=== PATIENT | female | born 1950 | race Caucasian/White ===

== ENCOUNTER → 2018-09-30 11:27 | Outpatient (CLI) | payer MEDICARE, SELFPAY ==
--- NOTE | 2018-09-30 | DI.MG.S_ITS ---
BILATERAL DIGITAL SCREENING MAMMOGRAM 3D/2D WITH CAD: 09/30/2018 CLINICAL: Routine screening. Comparison is made to exams dated: 09/21/2017 mammogram, 08/01/2016 mammogram, and 07/31/2015 mammogram - [facility]. There are scattered fibroglandular elements in both breasts. Current study was also evaluated with a Computer Aided Detection (CAD) system. There are benign post operative findings in the left breast. There is a circular mole marker on both breasts. There is a linear scar marker overlying the left breast. No significant masses, calcifications, or other findings are seen in either breast. There has been no significant interval change. IMPRESSION: There is no mammographic evidence of malignancy. A 1 year screening mammogram is recommended. This exam was interpreted at Station ID: [id number]. NOTE: For mammograms, a report in lay terms will be sent to the patient. Approximately 15% of breast malignancies will not be visualized mammographically. In the management of a palpable breast mass, a negative mammogram must not discourage biopsy of a clinically suspicious lesion. Electronically Signed By: Omi Valente M.D. ecl/:09/30/2018 17:32:11 letter sent: Normal Exam ACR BI-RADS Category 2: Benign Finding(s) 3342F
== END ==
PROVIDERS: Family Provider Family Medicine; PCP Family Medicine; Visit Provider Family Medicine
DX: Z12.31 Encounter for screening mammogram for malignant neoplasm of breast (principal)
CPT/HCPCS: 77063; 77067

== ENCOUNTER 2018-12-03 14:37 | Day surgery (SDC) | payer MEDICARE, SELFPAY ==
[2018-12-03] VITALS (10 sets, daily range): BP systolic 84–134; BP diastolic 47–81; PULSE 55–68; RESP 12–17; TEMP 36.3–36.7; O2SAT 92–98; BMI 28.0
--- NOTE | 2018-12-03 | PATH_ITS ---
[facility] Accession Number: [id number] . 01 Material submitted: . colon - SIGMOID POLYP 2-4 MM . 02 Diagnosis: Sigmoid Colon, 2-4 mm, Polypectomy: Hyperplastic polyp. [facility] [place]/12/06/2018 . 02 Electronically signed: . Darien Mcknight MD, PhD, Pathologist NPI- [id number] . 01 Gross description: . SIGMOID POLYP 2-4 MM: Received in formalin is 1 fragment(s) of chacko, soft tissue measuring 0.5 x 0.4 x 0.3 cm submitted entirely in 1 cassette(s) /CKI /CKI . 02 Pathologist provided ICD-10: K63.5 . 02 CPT . 851268 Performed at: 01 [facility] [address] [place] [address], [place], [place] [id number] MD Jonathan Holguin MD Phone: [phone] Performed at: 02 [facility] [address] [place], [place] [id number] MD Nicole Pierre MD Phone: [phone]
[2018-12-03] MEDS: LACTATED RINGERS 1,000 ML 200 ML IV (14:55)
[2018-12-03] MEDS: HYOSCYAMINE 0.125 MG TABLET PO (14:58)
[2018-12-03] MEDS: MIDAZOLAM 5 MG/5 ML VIAL IV (16:05)
[2018-12-03] MEDS: fentaNYL 250 MCG/5 ML INJ IV (16:06)
--- NOTE | 2018-12-03 16:25 | P.OP.ENDO_ITS ---
Operative Date/Time/Diagnoses Date of procedure: 12/03/18 Time of procedure: 16:19 Pre-op diagnosis: 1. Screening for colon cancer 2. History of colon polyps Post-op diagnosis: other (1. Screening for colon cancer, 2. History of colon polyps, 3. Sigmoid polyp x1) Procedure & Clinicians Study performed: Colonoscopy Same procedure as scheduled: Yes Indications: 1. Screening for colon cancer. 2. History of colon polyps Surgeon: Marielena Rust Procedure Notes Procedure in detail: ENDOSCOPIST: Marielena Rust MD PROCEDURE: Colonoscopy with cold biopsy INDICATIONS: 1. Screening for colon cancer 2. History of colon polyps MEDICATION: Levsin 0.125 mg sublingual, incremental doses of Versed and fentanyl until appropriate level sedation achieved. ASA CLASS: 2 CECAL WITHDRAWAL TIME: 8 minutes COMPLICATIONS: None. EXTENT OF PROCEDURE: Cecum. QUALITY OF PREP: Good with portions of liquid stool. PROCEDURE: Prior to insertion of the colonoscope, a digital rectal examination was accomplished with circumferential palpation of the distal rectal mucosa without significant findings being noted. The high-definition pediatric colonoscope was passed into the rectum in the usual fashion and advanced over to the cecum wit hout difficulty. The ileocecal valve, appendiceal stoma, and medial wall all could be inspected and no abnormalities were seen. ASCENDING COLON: As the colonoscope was withdrawn, care was taken to expose and inspect the haustral folds and no abnormalities were seen. HEPATIC FLEXURE: Normal no polyps, diverticula or other abnormalities. TRANSVERSE COLON: Normal no polyps, diverticula or other abnormalities. DESCENDING COLON: Minor diverticulosis, otherwise normal, no polyps, or other abnormalities. SIGMOID COLON: Minor diverticulosis, one small 2 mm polyp, removed with cold biopsy forceps, otherwise no other abnormalities. RECTUM: Normal. J maneuver was produced. There was no significant perianal disease. The J maneuver was broken. The remainder of the rectum was inspected and there was no external hemorrhoid disease. The scope was withdrawn. IMPRESSION: 1. Sigmoid polyp x1, in 2-4 mm, removed with cold biopsy forceps 2. Diverticulosis, left-sided PLAN: 1. Follow up in clinic status with the results. The possibility of a missed lesion including a malignancy has been discussed with the patient previously. Potential alarm symptoms have been discussed and should be reported immediately. Scope withdrawal time: 8 minutes Sedation minutes: 12 Findings: polyp Specimen(s): other Complications: none Recommendations: Will call with biopsy results Follow up: weeks (2) Disposition: PACU
--- NOTE | 2018-12-03 16:47 | SUR.PHASEI ---
1645 aroused spontaneously, denies feeling light-headed. HOB elevated, fluids given. Drowsy, oriented, resp unlabored.
--- NOTE | 2018-12-03 16:51 | SUR.PHASEI ---
Awake, drowsy, oriented, states that she feels good. Will prepare to transfer.
--- NOTE | 2018-12-03 17:48 | SUR.PHASEII ---
1705 Stable, anxious to go home, waiting for DC order; MD in procedure. Declines more fluids, denies pain, nausea, light-headedness. IV dc'd, clothes given.
--- NOTE | 2018-12-03 17:55 | SUR.PHASEII ---
Edit to IV fluid not permitted, so additional fluid infusion documented.
== END 2018-12-03 17:44 | disposition home or self-care (01) ==
PROVIDERS: PCP Family Medicine; Visit Provider Student in an Organized Health Care Education/Training Program
PROC: 0DJD8ZZ Inspection of Lower Intestinal Tract, Via Natural or Artificial Opening Endoscopic (ICD-10-PCS; CPT 45378; principal; 2018-12-03 16:00)
DX: Z86.010 Personal history of colon polyps (principal); K57.30 Diverticulosis of large intestine without perforation or abscess without bleeding; D12.5 Benign neoplasm of sigmoid colon; I10 Essential (primary) hypertension; E03.9 Hypothyroidism, unspecified
CPT/HCPCS: 45380; 88305; J2250; J3010

== ENCOUNTER → 2019-11-29 12:11 | Outpatient (CLI) | payer MEDICARE, SELFPAY ==
--- NOTE | 2019-11-29 | DI.MG.S_ITS ---
BILATERAL DIGITAL SCREENING MAMMOGRAM 3D/2D WITH CAD: 11/29/2019 CLINICAL: Routine screening. Comparison is made to exams dated: 09/30/2018 mammogram, 09/21/2017 mammogram, 08/01/2016 mammogram, and 07/31/2015 mammogram - [facility]. There are scattered fibroglandular elements in both breasts. Current study was also evaluated with a Computer Aided Detection (CAD) system. There are benign post operative findings in the left breast. There is a mole marker on the left breast. No significant masses, calcifications, or other findings are seen in either breast. There has been no significant interval change. IMPRESSION: There is no mammographic evidence of malignancy. A 1 year screening mammogram is recommended. This exam was interpreted at Station ID: [id number]. NOTE: For mammograms, a report in lay terms will be sent to the patient. Approximately 15% of breast malignancies will not be visualized mammographically. In the management of a palpable breast mass, a negative mammogram must not discourage biopsy of a clinically suspicious lesion. Electronically Signed By: Pushpa isaac/latricia:11/29/2019 17:47:48 letter sent: Normal Exam ACR BI-RADS Category 2: Benign Finding(s) 3342F
== END ==
PROVIDERS: PCP Family Medicine; Referring Provider Family Medicine; Visit Provider Family Medicine
DX: Z12.31 Encounter for screening mammogram for malignant neoplasm of breast (principal); Z78.0 Asymptomatic menopausal state; E07.9 Disorder of thyroid, unspecified; R29.890 Loss of height; Z87.891 Personal history of nicotine dependence
CPT/HCPCS: 77063; 77067; 77080

== ENCOUNTER 2020-10-28 13:40 | Emergency (ER) | payer MEDICARE, SELFPAY ==
[2020-10-28 14:02] VITALS: BP 152/74; PULSE 64; RESP 18; TEMP 36.2; O2SAT 97; BMI 26.5
--- NOTE | 2020-10-28 14:07 | DI.RAD.S_ITS ---
PROCEDURE: XR RIBS RT MIN 3V W CXR 1V INDICATIONS: fall TECHNIQUE: 2 views of the right ribs were acquired, along with a single view chest. COMPARISON: None. FINDINGS: Surgical changes and devices: None. Bones and chest wall: No fractures or dislocations. No suspicious bony lesions. Overlying soft tissues appear unremarkable. Lungs and pleura: No pleural effusions or pneumothorax. Lungs appear clear. Mediastinum: Mediastinal contours appear normal. Heart size is normal. IMPRESSION: No evidence of displaced right rib fracture. No evidence acute pulmonary process. Dictated by: Mason Chang M.D. on 10/28/2020 at 13:39 Approved by: Mason Chang M.D. on 10/28/2020 at 13:41
--- NOTE | 2020-10-28 17:07 | ED.FALL ---
HPI - Fall General Chief Complaint: Fall Stated Complaint: RIB PAIN RT SIDE AFTER FALL ON Time Seen by Provider: 10/28/20 17:07 Source: patient Mode of arrival: Family Vehicle Limitations: no limitations History of Present Illness HPI Narrative: 70-year-old female comes emergency department after a fall on Thursday, 5 days prior. Patient states that she was in her bathroom putting some lotion on her lower extremity on a patch of psoriasis when she lost her balance and fell into the edge of the bathtub. She landed on her right posterior Thoracics and developed bruising over the next couple days. Initially she had minimal pain but has had increasing pain for several days she has been taking aspirin pain with intermittent improvement. Patient denies hitting her head, no neck or midline back pain. No numbness tingling or weakness. She denies any shortness of breath or difficulty with inhalation. She denies any nausea or vomiting. No other GI or urinary symptoms. Patient takes medication for thyroid and hypertension. She states she has prompted come today because her made her. Related Data Home Medications Medication Instructions Recorded Confirmed CHOLECALCIFEROL (VITAMIN D) 2,000 units PO QDAY #0 12/24/12 12/03/18 LEVOTHYROXINE SODIUM (LEVOTHROID) 0.075 mg PO QDAY #0 12/24/12 12/03/18 losartan-hydrochlorothiazide 1 tab PO QDAY #0 12/24/12 12/03/18 [Hyzaar] metoprolol tartrate 50 mg PO BID #0 12/24/12 12/03/18 [POLYSPORIN] 1 INTRANASAL QDAY #0 12/26/15 multivitamin [Multiple Vitamins] 2 tab PO QDAY #0 12/26/15 12/03/18 calcium carbonate [Tums Ultra] 400 mg PO PRN PRN 12/03/18 12/03/18 Previous Rx's Medication Instructions Recorded ondansetron HCl [Zofran] 4 mg PO Q6H PRN #10 tab 10/28/20 tramadol [Ultram] 50 mg PO Q6H PRN #10 tab 10/28/20 Allergies Allergy/AdvReac Type Severity Reaction Status Date / Time codeine [CODEINE] AdvReac Intermediate VOILENTLY Verified 10/28/20 14:01 NAUSEATED hydrocodone [HYDROCODONE] AdvReac Intermediate nausea/vomi Verified 10/28/20 14:01 ting Review of Systems Review of Systems ROS Unobtainable: All systems reviewed & are unremarkable except as noted in HPI and below Patient History Medical History Cataract (lens) fragments in eye following cataract surgery, right eye Detached retina, right Eczema History of colon polyps History of pneumonia Hyperlipidemia Psoriasis Skin cancer Surgical History History of colonoscopy S/P YAG capsulotomy, right Social History household members: spouse Smoking Status: Former smoker Smoking Status: Former smoker alcohol intake frequency: 0-2 drinks per day Alcohol type: beer Substance Use Type: does not use Exam Narrative Exam Narrative: GEN: Patient appears in mild distress. HEAD: No evidence of trauma, no raccoon/Todd sign. NECK: Nontender, painless range of motion, trachea midline Negative Nexus criteria, there is no mid line tenderness, distracting injury, altered mental status, neuro deficit, recent EtOH. EYES: PERRLA, EOMI ENT: External inspection normal, trachea is midline, Nares are clear, airway is normal and with normal occlusion. RESP: Chest is nontender with palpation and has symmetric movement, no ecchymosis, breath sounds are normal no crackles, wheezes or rales CVS: Heart sounds are normal, no murmur noted, No JVD. ABG/GI: Nontender, soft, normal bowel sounds, no distention, no organomegaly. NEURO: Oriented AOx3, neuro is grossly intact, sensation and motor is normal all 4 extremities moving, cranial nerves II through XII are intact, GCS is 15. Normal gait. PSYCH: Normal mood and affect SKIN: Intact, warm and dry, no crepitus and without decubitus. Patient does have ecchymosis of your right thoracic towards her axilla. No palpable hematoma. BACK: No CVA tenderness, no vertebral tenderness, no step-off's, no crepitus EXT: Atraumatic, hips are nontender, no pedal edema, normal color and temperature. Normal ROM. Initial Vital Signs Initial Vital Signs: Vital Signs Temperature 97.1 F L 10/28/20 14:02 Pulse Rate 64 10/28/20 14:02 Respiratory Rate 18 10/28/20 14:02 Blood Pressure 152/74 H 10/28/20 14:02 Pulse Oximetry 97 10/28/20 14:02 Scores GCS [facility] coma scale eye opening: Spontaneous Cristine coma scale verbal response: Orientated Cristine coma scale motor response: Obey commands [facility] coma scale total score: 15 Course Orders Ordered: ED Orders 10/28/20 14:07 XR ribs RT min 3V w CXR1V Stat Discontinued Medications Ondansetron HCl (Ondansetron 4 Mg Odt Prepack) 1 bottle MISC SEEINSTR ONE Stop: 10/28/20 17:44 Last Admin: 10/28/20 17:56 Dose: 1 bottle Documented by: [email or web address] Tramadol HCl (Tramadol 50 Mg Prepack) 1 bottle MISC SEEINSTR ONE Stop: 10/28/20 17:44 Last Admin: 10/28/20 17:56 Dose: 1 bottle Documented by: [email or web address] Vital Signs Vital signs: Vital Signs - 8 hr 10/28/20 14:02 10/28/20 17:39 10/28/20 17:40 Temperature 97.1 F L Pulse Rate 64 78 77 Respiratory Rate 18 Blood Pressure 152/74 H 155/78 H Pulse Oximetry 97 100 97 MDM - Fall Imaging Data Chest x-ray: Radiologist's Impression: [address] [id number] ReportSigned Patient: Sharon Mars CMR#: [id number]: [id number]:[id number]/Sex: 70 / FDate of Service: 10/28/20Loc: EDAccession Number: [id number] Procedure: XR ribs RT min 3V w CXR1V Ordering Provider: Keely Pompa D.O. PROCEDURE: XR RIBS RT MIN 3V W CXR 1V INDICATIONS: fall TECHNIQUE: 2 views of the right ribs were acquired, along with a single view chest. COMPARISON: None. FINDINGS: Surgical changes and devices: None. Bones and chest wall: No fractures or dislocations. No suspicious bony lesions. Overlying soft tissues appear unremarkable. Lungs and pleura: No pleural effusions or pneumothorax. Lungs appear clear. Mediastinum: Mediastinal contours appear normal. Heart size is normal. IMPRESSION: No evidence of displaced right rib fracture. No evidence acute pulmonary process. Dictated by: Mason Chang M.D. on 10/28/2020 at 13:39 Approved by: Mason Chang M.D. on 10/28/2020 at 13:41 MDM Narrative Medical decision making narrative: This is a 70-year-old female with obvious contusion on her posterior thoracic wall in the right. Patient has been taking aspirin which is likely making her contusions light worse. It has not been growing in size. She does not point tenderness but is does have discomfort. X-ray does not show any acute fracture visualized. Plan for short course of pain medication, patient has had nausea and vomiting with codeine and [place] so will try tramadol with Zofran 20 minutes prior. Patient has had minimal improvement with [id number] medications. Discharge Plan Departure Patient Disposition: Home Clinical Impression: Contusion of rib on right side, Superficial bruising of chest wall Instructions: DI for Rib Fracture Activity Restrictions/Additional Instructions: Follow up with your physician if your symptoms are not improving over the next 1-2 weeks. You should start to notice slow improvement in your symptoms. Your imaging does not show obvious break or fracture to the ribs but you could have very small fractures or you can have contusions of the bone. You may take Zofran 1 tablet every 6 hours as needed for nausea. I would recommend taking this 20 minutes prior to narcotic pain medication. You may take 2 tablets pain medication every 6 hours as needed. This medication can make you sleepy do not drive, perform hazardous activities or make any major decisions while taking it. This medication will make you constipated please take a stool softener once to twice daily until stools are soft and regular. Prescription to [facility] in [place] Please return for lightheadedness, passing out, new chest pain or changing or shortness of breath, persistent vomiting, rapidly worsening bruising or spreading bruising, warmth or erythema of the skin or other new or concerning symptoms. Prescriptions: New ondansetron HCl [Zofran] 4 mg tablet 4 mg PO Q6H PRN (Reason: nausea and vomiting) Qty: 10 RF: 0 tramadol [Ultram] 50 mg tablet 50 mg PO Q6H PRN (Reason: pain) Qty: 10 RF: 0 No Action LEVOTHYROXINE SODIUM (LEVOTHROID) 0.075 mg PO QDAY Qty: 0 RF: 0 metoprolol tartrate 50 MG tablet 50 mg PO BID Qty: 0 RF: 0 losartan-hydrochlorothiazide [Hyzaar] 50 MG/12.5 MG tablet 1 tab PO QDAY Qty: 0 RF: 0 CHOLECALCIFEROL (VITAMIN D) 2,000 units PO QDAY Qty: 0 RF: 0 multivitamin [Multiple Vitamins] 1 EACH tablet 2 tab PO QDAY Qty: 0 RF: 0 [POLYSPORIN] 1 Intranasal QDAY Qty: 0 RF: 0 calcium carbonate [Tums Ultra] 400 mg calcium (1,000 mg) Tablet,Chewable 400 mg PO PRN PRN (Reason: Heartburn) RF: 0 Referrals: Cyrus Emmanuel MD [Primary Care Provider] -
[2020-10-28 17:39] VITALS: PULSE 78; O2SAT 100
[2020-10-28 17:40] VITALS: BP 155/78; PULSE 77; O2SAT 97
[2020-10-28] MEDS: ONDANSETRON 4 MG ODT PREPACK 1 BOTTLE MISC (17:56)
[2020-10-28] MEDS: TRAMADOL 50 MG PREPACK 1 BOTTLE MISC (17:56)
== END 2020-10-28 18:15 | disposition home or self-care (01) ==
PROVIDERS: Emergency Provider Emergency Medicine; PCP Family Medicine
DX: S20.211A Contusion of right front wall of thorax, initial encounter (principal); W19.XXXA Unspecified fall, initial encounter
CPT/HCPCS: 71101; 99283

== ENCOUNTER 2020-11-04 10:32 | Inpatient (IN) | payer MEDICARE, SELFPAY ==
[2020-11-04] VITALS (16 sets, daily range): BP systolic 118–158; BP diastolic 58–81; PULSE 58–89; RESP 17–58; TEMP 36–36.8; O2SAT 96–99; BMI 27.4
--- NOTE | 2020-11-04 10:53 | DI.CT.S_ITS ---
PROCEDURE: CT HEAD/BRAIN WO CON INDICATIONS: dizzy/head injury TECHNIQUE: Noncontrast 4.5 mm thick angled axial sections acquired from the foramen magnum to the vertex, with coronal and sagittal reformats. For radiation dose reduction, the following was used: automated exposure control, adjustment of mA and/or kV according to patient size. COMPARISON: None. FINDINGS: Image quality: Excellent. CSF spaces: Basal cisterns are patent. No extra-axial fluid collections. The ventricles are symmetric in size and shape. Mild bilateral ventricular prominence. Brain: No intracranial bleeds or masses. There is cerebral volume loss for age, with resultant ventricular and sulcal prominence. There are periventricular and deep white matter chronic small vessel ischemic changes. There is intracranial internal carotid artery atherosclerosis. Skull and face: Calvarium and visualized facial bones appear intact, without suspicious lesions. Sinuses: Visualized sinuses and mastoids are clear. IMPRESSION: 1. Age-related volume loss with mild bilateral ventricular prominence. 2. No evidence acute stroke, hemorrhage, or mass. 3. No evidence of significant intracranial sequelae of acute trauma. Dictated by: Mason Chang M.D. on 11/04/2020 at 10:24 Approved by: Mason Chang M.D. on 11/04/2020 at 10:25
[2020-11-04 11:37] LABS: BUN Creatinine Ratio 21.7 (6-22); Blood Urea Nitrogen 10 mg/dL (7-17); Calcium 9.2 mg/dL (8.4-10.2); Carbon Dioxide 31 mmol/L (22-32); Estimated Glomerular Filt Rate > 60.0 mL/min (>60); Glucose 159 mg/dL (80-110); HEMOLYSIS < 15 (0-50)
[2020-11-04 11:44] LABS: Basophils Absolute Auto 200 /uL (0-100); Basophils Percent Auto 2.9 % (0-2); Eosinophils Absolute Auto 0 /uL (0-450); Eosinophils Percent Auto 0.4 % (2-4); Hematocrit 39.3 % (36-46); Hemoglobin 14.8 g/dL (12.0-16.0); Lymphocytes Absolute Auto 800 /uL (1100-4500); Lymphocytes Percent Auto 12.6 % (25-40); Mean Corpuscular HGB Conc 37.7 % (30-36); Mean Corpuscular Hemoglobin 33.1 PG (26-34); Mean Corpuscular Volume 87.7 fL (80-100); Monocytes Absolute Auto 700 /uL (0-900); Monocytes Percent Auto 10.7 % (3-14); Neutrophils Absolute Auto 4500 /uL (1500-7000); Neutrophils Percent Auto 73.4 % (50-75); Platelet Count 223 X10^3/uL (150-400); Red Blood Cell Count 4.48 X10^6/uL (4.0-5.2); Red Cell Distribution Width 12.6 % (11.6-14.8); White Blood Cell Count 6.2 X10^3/uL (4.5-11.0)
[2020-11-04 11:45] LABS: Add Manual Diff / Slide Review SLIDE REVIEW
[2020-11-04 12:01] LABS: Chloride 75 mmol/L (98-107); Potassium 2.2 mmol/L (3.4-5.1); Sodium 114 mmol/L (137-145)
[2020-11-04 12:35] LABS: RBC Morphology Normal Morphology
[2020-11-04 12:39] LABS: Magnesium 1.7 mg/dL (1.6-2.3)
[2020-11-04] MEDS: ONDANSETRON 4 MG/2 ML INJ IV (12:46)
[2020-11-04 13:28] LABS: COVID19 -Nasal RAPID Negative (Negative)
--- NOTE | 2020-11-04 13:29 | ED_ITS ---
HPI - Weakness General Chief complaint: Weakness Stated complaint: not felling well/ vomitting weak dizzy Time Seen by Provider: 11/04/20 12:52 Source: patient and family ( ) Mode of arrival: Wheelchair Limitations: no limitations History of Present Illness HPI Narrative: this is a pleasant 70-year-old female who comes to the emergency department for not feeling well. Feeling weak, dizzy and having multiple falls this week. Patient states she has had several episodes of emesis but they been intermittent. Patient denies any pain currently. She denies any headache, vision changes, no facial droop. No numbness, tingling or localized weakness or lateralizing weakness. Patient denies any abdominal pain, no chest pain or shortness of breath. She has not had any diarrhea, black or bloody stools. patient's did notice her urine seemed dark yesterday and today. Patient has not had any dysuria or urgency. Patient does take losartan / hydrochlorothiazide, levothyroxine metoprolol daily for medications. She does not have any known cardiac history. She did think that she had hit her head at some point. Related Data Home Medications Medication Instructions Recorded Confirmed CHOLECALCIFEROL (VITAMIN D) 2,000 units PO QDAY #0 12/24/12 11/04/20 LEVOTHYROXINE SODIUM (LEVOTHROID) 0.075 mg PO QDAY #0 12/24/12 11/04/20 metoprolol tartrate 50 mg PO BID #0 12/24/12 11/04/20 multivitamin [Multiple Vitamins] 2 tab PO QDAY #0 12/26/15 11/04/20 calcium carbonate [Tums Ultra] 400 mg PO PRN PRN 12/03/18 11/04/20 atorvastatin 10 mg PO BEDTIME 11/04/20 11/04/20 chlorhexidine gluconate 0.5 ea PO BEDTIME 11/04/20 11/04/20 fluoride (sodium) [PreviDent 5000 1 applic PO BID 11/04/20 11/04/20 Booster Plus] losartan-hydrochlorothiazide 1 tab PO DAILY 11/04/20 11/04/20 tramadol 50 mg PO Q6H PRN 11/04/20 11/04/20 Previous Rx's Medication Instructions Recorded ondansetron HCl [Zofran] 4 mg PO Q6H PRN #10 tab 10/28/20 Allergies Allergy/AdvReac Type Severity Reaction Status Date / Time codeine [CODEINE] AdvReac Intermediate VOILENTLY Verified 10/28/20 14:01 NAUSEATED hydrocodone [HYDROCODONE] AdvReac Intermediate nausea/vomi Verified 10/28/20 14:01 ting Review of Systems Review of Systems ROS Unobtainable: All systems reviewed & are unremarkable except as noted in HPI and below Patient History Medical History Cataract (lens) fragments in eye following cataract surgery, right eye Detached retina, right Eczema History of colon polyps History of pneumonia Hyperlipidemia Psoriasis Skin cancer Surgical History History of colonoscopy S/P YAG capsulotomy, right Social History household members: spouse Smoking Status: Former smoker Smoking Status: Former smoker alcohol intake frequency: 0-2 drinks per day Alcohol type: beer Substance Use Type: does not use Exam Narrative Exam Narrative: GEN: well nourished, well appearing female, alert and oriented in room, patient appears to be in mild distress. HEENT: Atraumatic, pupils are equal round reactive to light, extraocular movements are intact, nares are clear, TMs are clear with no fluid, there is no conjunctival pallor. Throat is clear without any exudates, erythema, tonsillar enlargement or uvular deviation, no facial droop HEART: Regular rate and rhythm without murmur, clicks, rubs. Pulses are equal in upper and lower extremities LUNGS:Lungs clear to auscultation, no wheezes, rales, crackles, chest moves symmetrically ABD:bowel sounds normal, soft, non-tender, no guarding, rebound, rigidity, no masses noted, no hepatosplenomegaly :No CVA tenderness MSCL: Non-tender, no muscle atrophy, range of motion in upper and lower extremities NEURO:CN 2-12 intact, sensation normal SKIN: no obvious rash or skin changes noted. Initial Vital Signs Initial Vital Signs: Vital Signs Temperature 96.8 F L 11/04/20 10:44 Pulse Rate 58 L 11/04/20 10:44 Respiratory Rate 58 H 11/04/20 10:44 Blood Pressure 118/58 L 11/04/20 10:44 Pulse Oximetry 97 11/04/20 10:44 Course Orders Ordered: ED Orders 11/04/20 11:20 BMP [Basic Metabolic Panel] Stat CBC Auto Diff [Complete Blood Count AUTO DIFF] Stat Magnesium Stat 11/04/20 12:22 EKG-12 Lead Stat 11/04/20 13:00 COVID19 - ADMIT (RHINOLOGIST swab/PCR) Stat COVID19 -Nasal swab/Pre-Proc Stat Acetaminophen (Acetaminophen 325 Mg Tablet) 650 mg PO Q6HR PRN PRN Reason: Fever/Mild Pain (1-3) Last Admin: 11/04/20 19:12 Dose: 650 mg Documented by: NEHEMIAH Atorvastatin Calcium (Atorvastatin 20 Mg Tablet) 10 mg PO BEDTIME [facility] Calcium Carbonate (Calcium Carbonate 500 Mg Tab) 1,000 mg PO Q4HR PRN PRN Reason: Dyspepsia Last Admin: 11/04/20 19:12 Dose: 1,000 mg Documented by: NEHEMIAH Chlorhexidine Gluconate (Chlorhexidine Gluconate 473 Ml Mouthwash) 15 ml PO BEDTIME [facility] Enoxaparin Sodium (Enoxaparin 40 Mg/0.4 Ml Syringe) 40 mg SUBCUT DAILY [facility] POTASSIUM CHLORIDE IN WATER (Potassium Cl 10 Meq/100 Ml [place]) 10 meq in 100 mls @ 100 mls/hr IV Q1H [facility] Stop: 11/04/20 22:29 Ibuprofen (Ibuprofen 600 Mg Tablet) 600 mg PO Q6HR PRN PRN Reason: Fever/Mild Pain (1-3) Last Admin: 11/04/20 19:11 Dose: 600 mg Documented by: NEHEMIAH Levothyroxine Sodium (Levothyroxine 75 Mcg Tablet) 75 mcg PO DAILY@1800 MARYJANE Last Admin: 11/04/20 19:16 Dose: 75 mcg Documented by: NEHEMIAH Losartan Potassium (Losartan 50 Mg Tablet) 100 mg PO DAILY [facility] Metoprolol Tartrate (Metoprolol Ir 50 Mg Tablet) 50 mg PO BID [facility] Multivitamins (Multivitamin 1 Tablet) 2 tab PO DAILY [facility] Naloxone HCl (Naloxone 0.4 Mg/Ml Vial) 0.4 mg IV Q30MIN PRN PRN Reason: Opiate Reversal Non-Formulary Medication (Fluoride (Sodium) [Prevident 5000 Booster Plus]) 1 applictn PO BID [facility] Ondansetron HCl (Ondansetron 4 Mg/2 Ml Inj) 4 mg IV Q8HR PRN PRN Reason: Nausea And Vomiting Ondansetron HCl (Ondansetron 4 Mg Odt) 4 mg PO Q6H PRN PRN Reason: Nausea And Vomiting Tramadol HCl (Tramadol 50 Mg Tablet) 50 mg PO Q6H PRN PRN Reason: Pain (Scale Score 4-6) Vitamin D (Cholecalciferol (Vitamin D3) 1,000 Unit Tablet) 2,000 unit PO 1800 MARYJANE Last Admin: 11/04/20 19:11 Dose: 2,000 unit Documented by: NEHEMIAH Discontinued Medications Sodium Chloride (Normal Saline 0.9%) 1,000 mls @ 1,000 mls/hr IV BOLUS ONE Stop: 11/04/20 14:28 Last Infusion: 11/04/20 15:56 Dose: 0 mls/hr Documented by: Admin: 11/04/20 13:55 Dose: 1,000 mls/hr Documented by: RUPERT POTASSIUM CHLORIDE IN WATER (Potassium Cl 10 Meq/100 Ml [place]) 10 meq in 100 mls @ 100 mls/hr IV Q1H MARYJANE Stop: 11/04/20 17:29 Last Infusion: 11/04/20 18:59 Dose: 100 mls/hr Documented by: Admin: 11/04/20 17:29 Dose: 100 mls/hr Documented by: Infusion: 11/04/20 17:29 Dose: 0 mls/hr Documented by: Infusion: 11/04/20 16:29 Dose: 0 mls/hr Documented by: Admin: 11/04/20 16:05 Dose: 100 mls/hr Documented by: Infusion: 11/04/20 16:05 Dose: 100 mls/hr Documented by: Admin: 11/04/20 15:07 Dose: 100 mls/hr Documented by: Infusion: 11/04/20 14:56 Dose: 100 mls/hr Documented by: Admin: 11/04/20 13:56 Dose: 100 mls/hr Documented by: RUPERT Ondansetron HCl (Ondansetron 4 Mg/2 Ml Inj) 4 mg IV NOW ONE Stop: 11/04/20 12:23 Last Admin: 11/04/20 12:46 Dose: 4 mg Documented by: RUPERT Potassium Chloride (Potassium Chloride 20 Meq/15 Ml Udc) 40 meq PO NOW ONE Stop: 11/04/20 13:30 Last Admin: 11/04/20 13:56 Dose: 40 meq Documented by: RUPERT Vital Signs Vital signs: Vital Signs - 8 hr 11/04/20 12:09 11/04/20 12:30 11/04/20 13:00 Pulse Rate 62 61 59 L Respiratory Rate 20 17 Blood Pressure 134/67 129/64 Pulse Oximetry 99 98 97 11/04/20 13:30 11/04/20 14:00 11/04/20 14:01 Pulse Rate 59 L 69 89 Respiratory Rate 17 20 23 Blood Pressure 123/61 145/75 H Pulse Oximetry 97 98 96 11/04/20 14:30 11/04/20 15:00 11/04/20 15:30 Pulse Rate 67 63 69 Respiratory Rate 20 21 20 Blood Pressure 137/64 158/69 H Pulse Oximetry 98 98 98 11/04/20 15:42 11/04/20 16:00 Pulse Rate 67 69 Respiratory Rate 24 24 Blood Pressure 158/69 H 138/81 Pulse Oximetry 97 98 MDM - Weakness Lab Data Attestation: I reviewed the patient's lab results. Result diagrams: 11/04/20 11:20 11/04/20 11:20 Labs: Lab Results 11/04/20 11/04/20 11/04/20 Range/Units 11:20 11:20 11:20 WBC 6.2 (4.5-11.0) X10^3/uL RBC 4.48 (4.0-5.2) X10^6/uL Hgb 14.8 (12.0-16.0) g/dL Hct 39.3 (36-46) % MCV 87.7 (80-100) fL MCH 33.1 (26-34) PG MCHC 37.7 H (30-36) % RDW 12.6 (11.6-14.8) % Plt Count 223 (150-400) X10^3/uL Neut % (Auto) 73.4 (50-75) % Lymph % (Auto) 12.6 L (25-40) % [place] % (Auto) 10.7 (3-14) % Eos % (Auto) 0.4 L (2-4) % Baso % (Auto) 2.9 H (0-2) % Neut # (Auto) 4500 (2430-9485) /uL Lymph # (Auto) 800 L (0221-0727) /uL [place] # (Auto) 700 (0-900) /uL Eos # (Auto) 0 (0-450) /uL Baso # (Auto) 200 H (0-100) /uL RBC Morphology Normal morphology Sodium 114 L* (137-145) mmol/L Potassium 2.2 L* (3.4-5.1) mmol/L Chloride 75 L* (98-107) mmol/L Carbon Dioxide 31 (22-32) mmol/L BUN 10 (7-17) mg/dL Creatinine 0.46 L (0.52-1.04) mg/dL Estimated GFR > 60.0 (>60) mL/min BUN/Creatinine Ratio 21.7 (6-22) Glucose 159 H (80-110) mg/dL Calcium 9.2 (8.4-10.2) mg/dL Magnesium 1.7 (1.6-2.3) mg/dL SARS-CoV-2 (PCR) (Negative) 11/04/20 11/04/20 Range/Units 13:00 13:00 WBC (4.5-11.0) X10^3/uL RBC (4.0-5.2) X10^6/uL Hgb (12.0-16.0) g/dL Hct (36-46) % MCV (80-100) fL MCH (26-34) PG MCHC (30-36) % RDW (11.6-14.8) % Plt Count (150-400) X10^3/uL Neut % (Auto) (50-75) % Lymph % (Auto) (25-40) % [place] % (Auto) (3-14) % Eos % (Auto) (2-4) % Baso % (Auto) (0-2) % Neut # (Auto) (4230-5517) /uL Lymph # (Auto) (0650-5207) /uL [place] # (Auto) (0-900) /uL Eos # (Auto) (0-450) /uL Baso # (Auto) (0-100) /uL RBC Morphology Sodium (137-145) mmol/L Potassium (3.4-5.1) mmol/L Chloride (98-107) mmol/L Carbon Dioxide (22-32) mmol/L BUN (7-17) mg/dL Creatinine (0.52-1.04) mg/dL Estimated GFR (>60) mL/min BUN/Creatinine Ratio (6-22) Glucose (80-110) mg/dL Calcium (8.4-10.2) mg/dL Magnesium (1.6-2.3) mg/dL SARS-CoV-2 (PCR) Negative Negative (Negative) Imaging Data CT scan - head: Radiologist Impression: [address] [id number] Scan ReportSigned Patient: Sharon Mars CMR#: [id number]: 8Acct:[id number]/Sex: 70 / FDate of Service: 11/04/20Loc: EDAccession Number: [id number] Procedure: CT head/brain wo con Ordering Provider: Keely Pompa D.O. PROCEDURE: CT HEAD/BRAIN WO CON INDICATIONS: dizzy/head injury TECHNIQUE: Noncontrast 4.5 mm thick angled axial sections acquired from the foramen magnum to the vertex, with coronal and sagittal reformats. For radiation dose reduction, the following was used: automated exposure control, adjustment of mA and/or kV according to patient size. COMPARISON: None. FINDINGS: Image quality: Excellent. CSF spaces: Basal cisterns are patent. No extra-axial fluid collections. The ventricles are symmetric in size and shape. Mild bilateral ventricular prominence. Brain: No intracranial bleeds or masses. There is cerebral volume loss for age, with resultant ventricular and sulcal prominence. There are periventricular and deep white matter chronic small vessel ischemic changes. There is intracranial internal carotid artery atherosclerosis. Skull and face: Calvarium and visualized facial bones appear intact, without suspicious lesions. Sinuses: Visualized sinuses and mastoids are clear. IMPRESSION: 1. Age-related volume loss with mild bilateral ventricular prominence. 2. No evidence acute stroke, hemorrhage, or mass. 3. No evidence of significant intracranial sequelae of acute trauma. Dictated by: Mason Chang M.D. on 11/04/2020 at 10:24 Approved by: Mason Chang M.D. on 11/04/2020 at 10:25 ECG Data Attestation: I personally reviewed and interpreted this ECG as follows: Interpretation: Sinus bradycardia rate of 55 IA 144, QRS of 98 QTC of 420. No acute ST elevation. Patient has some nonspecific depression. This is noted on an prior EKG from 12/24/2015 and appears similar but on prior EKG from 02/04/2016 is not appreciated. MDM Narrative Medical decision making narrative: This is a 70-year-old female comes in with recurrent falls, weakness and symptoms consistent with hyponatremia, patient has had some nausea and vomiting and this is also consistent with her hypokalemia. She does take losartan / hydrochlorothiazide this may be contributing factor. I suspect this is been a slower declined as her mentation is quite clear in the department. Head CT was negative for bleed. She does not have any obvious stroke symptoms here today. Patient EKG shows some nonspecific change but she does not have any cardiac symptoms today. Discussed with Dr. Rust who kindly accepts for inpatient admission Discharge Plan Departure Patient Disposition: Admitted As Inpatient Clinical Impression: Hyponatremia, Hypokalemia Admit Date/Time: 11/04/20 16:27 Admit Provider: Alli Pelletier
[2020-11-04] MEDS: SODIUM CHLORIDE 0.9% 1,000 ML 1000 ML IV (13:55)
[2020-11-04] MEDS: POTASSIUM CHLORIDE IN WATER 10 MEQ/100 ML PIGGYBACK 100 MEQ IV ×4 (13:56→17:29)
[2020-11-04] MEDS: POTASSIUM CHLORIDE 20 MEQ/15 ML UDC 40 MEQ PO (13:56)
[2020-11-04 14:05] LABS: COVID19 - ADMIT (NP swab/PCR) Negative (Negative)
--- NOTE | 2020-11-04 16:29 | P.HP_ITS ---
History of Present Illness History of Present Illness Date Patient Seen: 11/04/20 Time Patient Seen: 16:29 Chief complaint: not felling well/ vomitting weak dizzy Narrative: 70-year-old female of Dr. Lopez is admitted from the ED secondary to hyponatremia and hypokalemia. Recent fall on 10/28/2020 with subsequent ED visit with negative workup. Since that time, she has been progressively weak and has had some vomiting. Denies pain. No change in bowel or bladder habits. Denies that she has had a change in medications or food. Has not been drinking more water. Has been staying inside during this heat wave. Thinks that she has been taking her medications correctly. Vital signs upon admission to the ED included a temperature of 96.8?, pulse 58, respirations 20, blood pressure 118/58, O2 saturation 97% on room air. Electrolytes significant for sodium of 114, potassium 2.2, chloride 75, glucose 159. Due to hyperglycemia, corrected sodium is 115. Magnesium normal at 1.7. CT head notably negative. EKG significant for sinus bradycardia with a ventricular rate of 55 beats per minute. She did have some nonspecific ST depression which is essentially unchanged from previous EKGs. Heart rate has now normalized and is 73. She received 1 bag of normal saline and potassium repletion prior to being transferred to the floor. She is on hydroch lorothiazide. Past Medical History: HYPERLIPIDEMIA Shoulder pain, right NEOPLASM, SKIN, OF UNCERTAIN BEHAVIOR PAIN, KNEE, LEFT HYPERTENSION HYPOTHYROIDISM Menopause symptoms History of colon polyps Past Surgical History: Cataract Extraction right eye (07/2012) YAG Capsulotomy ( 02/2017) Colonoscopy x4 Family History: Father: Cardiac Arrest, Cardiomyopathy 1977 (age 69) Mother: Alcohol and dementia Social History: Marital Status: - Ayaan (1948) Occupation: Staffing Rn - [employer] Education: 16 years, college graduate [employer] (2013) - [id number] (02/28/14) Patient History Medical History Cataract (lens) fragments in eye following cataract surgery, right eye Detached retina, right Eczema History of colon polyps History of pneumonia Hyperlipidemia Psoriasis Skin cancer Surgical History History of colonoscopy S/P YAG capsulotomy, right Family & Social History Social History: household members spouse Safety & Behavioral: Feels Safe in Current Yes Environment Been Physically Hurt or No Threatened By a Person Tobacco & Substance use: Smoking Status Former smoker alcohol intake frequency 0-2 drinks per day Substance Use Type does not use Meds Home Medications and Allergies Home Medications Medication Instructions Recorded Confirmed Type CHOLECALCIFEROL (VITAMIN D) 2,000 units PO QDAY #0 12/24/12 11/04/20 History LEVOTHYROXINE SODIUM (LEVOTHROID) 0.075 mg PO QDAY #0 12/24/12 11/04/20 History metoprolol tartrate 50 mg PO BID #0 12/24/12 11/04/20 History multivitamin [Multiple Vitamins] 2 tab PO QDAY #0 12/26/15 11/04/20 History calcium carbonate [Tums Ultra] 400 mg PO PRN PRN 12/03/18 11/04/20 History ondansetron HCl [Zofran] 4 mg PO Q6H PRN #10 tab 10/28/20 11/04/20 Rx atorvastatin 10 mg PO BEDTIME 11/04/20 11/04/20 History chlorhexidine gluconate 0.5 ea PO BEDTIME 11/04/20 11/04/20 History fluoride (sodium) [PreviDent 5000 1 applic PO BID 11/04/20 11/04/20 History Booster Plus] losartan-hydrochlorothiazide 1 tab PO DAILY 11/04/20 11/04/20 History tramadol 50 mg PO Q6H PRN 11/04/20 11/04/20 History Allergies Allergy/AdvReac Type Severity Reaction Status Date / Time codeine [CODEINE] AdvReac Intermediate VOILENTLY Verified 10/28/20 14:01 NAUSEATED hydrocodone [HYDROCODONE] AdvReac Intermediate nausea/vomi Verified 10/28/20 14:01 ting Exam Vital Signs (past 8 hours): - 11/04/20 10:44 11/04/20 12:09 11/04/20 12:30 Temperature 96.8 F L Pulse Rate 58 L 62 61 Respiratory Rate 58 H 20 Blood Pressure 118/58 L 134/67 Pulse Oximetry 97 99 98 11/04/20 13:00 11/04/20 13:30 11/04/20 14:00 Temperature Pulse Rate 59 L 59 L 69 Respiratory Rate 17 17 20 Blood Pressure 129/64 123/61 Pulse Oximetry 97 97 98 11/04/20 14:01 11/04/20 14:30 11/04/20 15:00 Temperature Pulse Rate 89 67 63 Respiratory Rate 23 20 21 Blood Pressure 145/75 H 137/64 Pulse Oximetry 96 98 98 11/04/20 15:30 11/04/20 15:42 11/04/20 16:00 Temperature Pulse Rate 69 67 69 Respiratory Rate 20 24 24 Blood Pressure 158/69 H 158/69 H 138/81 Pulse Oximetry 98 97 98 Oxygen Delivery Method Room Air Narrative Exam Narrative: GENERAL: Alert and oriented, appearing stated age and in no acute distress. HEENT: Head normocephalic/atraumatic. Pupils equal, round, and reactive to light and accomodation. Extraocular muscles intact. Tympanic membranes clear. Nasal mucosa moist, septum midline. Oral mucosa dry, no lesions. Neck soft and supple, no lymphadenopathy. LUNGS: Clear to ausculation bilaterally, no wheezes, rhonchi or rales. CV: Normal S1 and S2 with regular rate and rhythm, no audible murmurs, rubs or gallops. ABDOMEN: Soft, non-tender, non-distended, no organomegaly. Positive bowel sounds. EXTREMITIES: No clubbing, cyanosis, or edema. NEURO: Cranial nerves II through XII grossly intact, no focal deficits. PSYCH: Alert and oriented x 3. SKIN: No concerning lesions. Objective Labs Result Diagrams: 11/04/20 11:20 11/04/20 11:20 Labs: Laboratory Results - last 24 hr 11/04/20 11/04/20 11/04/20 11:20 11:20 11:20 WBC 6.2 RBC 4.48 Hgb 14.8 Hct 39.3 MCV 87.7 MCH 33.1 MCHC 37.7 H RDW 12.6 Plt Count 223 Neut % (Auto) 73.4 Lymph % (Auto) 12.6 L [place] % (Auto) 10.7 Eos % (Auto) 0.4 L Baso % (Auto) 2.9 H Neut # (Auto) 4500 Lymph # (Auto) 800 L [place] # (Auto) 700 Eos # (Auto) 0 Baso # (Auto) 200 H RBC Morphology Normal morphology Sodium 114 L* Potassium 2.2 L* Chloride 75 L* Carbon Dioxide 31 BUN 10 Creatinine 0.46 L Estimated GFR > 60.0 BUN/Creatinine Ratio 21.7 Glucose 159 H Calcium 9.2 Magnesium 1.7 SARS-CoV-2 (PCR) 11/04/20 11/04/20 13:00 13:00 WBC RBC Hgb Hct MCV MCH MCHC RDW Plt Count Neut % (Auto) Lymph % (Auto) [place] % (Auto) Eos % (Auto) Baso % (Auto) Neut # (Auto) Lymph # (Auto) [place] # (Auto) Eos # (Auto) Baso # (Auto) RBC Morphology Sodium Potassium Chloride Carbon Dioxide BUN Creatinine Estimated GFR BUN/Creatinine Ratio Glucose Calcium Magnesium SARS-CoV-2 (PCR) Negative Negative Assessment & Plan Assessment & Plan narrative: 1. Hyponatremia, acute -Likely hypotonic hyponatremia secondary to hydrochlorothiazide use as patient does not have peripheral/central edema, hypotension, or hypovolemia. Plan: Will stop hydrochlorothiazide and recheck labs in the morning. Fluid restriction, TAR < 800 cc/24 hours. Will encourage PO salt intake. If sodium does not start to trend up, may need to check urine sodium and urine osmality to guide further treatment. 2. Hypokalemia, acute Plan: She is status post repletion in the ED, will trend labs. 3. Hypochloremia, acute Plan: Please see #1. 4. Weakness, acute, likely secondary to metabolic derangement as noted above. Plan: Treating underlying disease as noted above. PT. 5. Fall, acute Plan: Please see #3. 6. Hypothyroidism, chronic Plan: Continue home medications. 7. Hyperlipidemia, chronic Plan: Continue home medications. 8. Hypertension, chronic Plan: Continue home medications with the exception of hydrochlorothiazide. Will titrate BP medications tomorrow if needed. Code: Full DVT prophylaxis: Lovenox, SCDs Code: Negative.
--- NOTE | 2020-11-04 17:45 | PC.NURSE ---
Addendum entered by Kelly Gill R.N. 11/04/20 22:11: Pt had uneventful evening. Continuous pulse ox @ 97% RA. Fluid restriction in place. SCD in place. Call light w/in reach, bed alarm on for pt safety. Continue w/plan of care. Original Note: Pt arrived from ED @ 1630 Alert/oriented. Denies discomfort. IV RAC infusing KCL as per orders Pt tolerating w/o incidence. Pt oriented to room & call system. Call light w/in reach, bed alarm on for pt safety.
[2020-11-04] MEDS: CHOLECALCIFEROL (VITAMIN D3) 1,000 UNIT TABLET 2000 UNIT PO (19:11)
[2020-11-04] MEDS: IBUPROFEN 600 MG TABLET PO (19:11)
[2020-11-04] MEDS: CALCIUM CARBONATE 500 MG TAB 1000 MG PO (19:12)
[2020-11-04] MEDS: ACETAMINOPHEN 325 MG TABLET 650 MG PO (19:12)
[2020-11-04] MEDS: LEVOTHYROXINE 75 MCG TABLET PO (19:16)
[2020-11-04] MEDS: ATORVASTATIN 20 MG TABLET 10 MG PO (20:55)
[2020-11-04] MEDS: METOPROLOL IR 50 MG TABLET PO (20:55)
[2020-11-05] VITALS (9 sets, daily range): BP systolic 88–188; BP diastolic 57–96; PULSE 57–89; RESP 16–19; TEMP 36.4–37.5; O2SAT 95–99
[2020-11-05 06:27] LABS: BUN Creatinine Ratio 18.5 (6-22); Blood Urea Nitrogen 10 mg/dL (7-17); Calcium 9.1 mg/dL (8.4-10.2); Carbon Dioxide 33 mmol/L (22-32); Chloride 79 mmol/L (98-107); Estimated Glomerular Filt Rate > 60.0 mL/min (>60); Glucose 109 mg/dL (80-110); HEMOLYSIS 16 (0-50); Magnesium 1.9 mg/dL (1.6-2.3); Phosphorous 2.5 mg/dL (2.8-4.1); Potassium 2.8 mmol/L (3.4-5.1)
[2020-11-05 06:44] LABS: Sodium 116 mmol/L (137-145)
[2020-11-05 07:38] LABS: Add Manual Diff / Slide Review NO; Basophils Absolute Auto 0 /uL (0-100); Basophils Percent Auto 0.1 % (0-2); Eosinophils Absolute Auto 0 /uL (0-450); Eosinophils Percent Auto 0.5 % (2-4); Hematocrit 36.5 % (36-46); Hemoglobin 13.5 g/dL (12.0-16.0); Lymphocytes Absolute Auto 1300 /uL (1100-4500); Lymphocytes Percent Auto 17.7 % (25-40); Mean Corpuscular HGB Conc 37.1 % (30-36); Mean Corpuscular Hemoglobin 32.8 PG (26-34); Mean Corpuscular Volume 88.5 fL (80-100); Monocytes Absolute Auto 1000 /uL (0-900); Monocytes Percent Auto 14.5 % (3-14); Neutrophils Absolute Auto 4800 /uL (1500-7000); Neutrophils Percent Auto 67.2 % (50-75); Platelet Count 212 X10^3/uL (150-400); Red Blood Cell Count 4.13 X10^6/uL (4.0-5.2); Red Cell Distribution Width 12.5 % (11.6-14.8); White Blood Cell Count 7.1 X10^3/uL (4.5-11.0)
--- NOTE | 2020-11-05 08:48 | CM.DANOTE ---
DCP: Case received, EMR reviewed and met with patient. Introduced self and role. Was able to obtain information regarding patient's baseline activity level prior to hospitalization, as well as her current living situation. DCP assessment completed with information currently available. Patient is a 70 year old female who admitted yesterday afternoon to the care of the hospitalist team. PCP: Dr. Emmanuel. Payer: confirmed: Medicare/[employer]. Patient came to the hospital via private vehicle secondary to having increased weakness, as well as dizziness. Patient was noted to have hyponatremia, as well as hypokalemia. Met with patient in her room. She is pleasant, alert and oriented. She resides in [place] with her spouse, Ayaan. She is independent at her baseline, and drives. P: DCP to continue to follow for any needs. She does have P.T. orders, will see how she does with therapy. Plan is for home when medically stable. Brandy Fried RN/Nurse Examiner
[2020-11-05] MEDS: SODIUM CHLORIDE 0.9% FLUSH 10 ML IV ×2 (09:35→21:20)
[2020-11-05] MEDS: MULTIVITAMIN 1 TABLET 2 TAB PO (09:35)
[2020-11-05] MEDS: LOSARTAN 50 MG TABLET 100 MG PO (09:35)
[2020-11-05] MEDS: METOPROLOL IR 50 MG TABLET PO ×2 (09:35→21:19)
[2020-11-05] MEDS: ENOXAPARIN 40 MG/0.4 ML SYRINGE SUBCUT (09:36)
[2020-11-05] MEDS: POTASSIUM CHLORIDE IN WATER 10 MEQ/100 ML PIGGYBACK 66.667 MEQ IV ×3 (09:40→23:38)
[2020-11-05] MEDS: KCL 40 MEQ IN NS 1,000 ML 84 MEQ IV ×2 (09:54→10:14)
--- NOTE | 2020-11-05 11:06 | PT.IIE ---
Current Diagnoses Hypo-osmolality and hyponatremia (11/04/20) Medical History (Last Reviewed 11/04/20 @ 20:02 by Keely Pompa DO) Cataract (lens) fragments in eye following cataract surgery, right eye Detached retina, right Eczema History of colon polyps History of pneumonia Hyperlipidemia Psoriasis Skin cancer Physical Therapy Inpatient Evaluation/Re-Eval M1 PT/OT-IP Prior Functional Status Start: 11/05/20 09:00 Freq: NEEDED Status: Active Protocol: Document 11/05/20 11:06 AW (Rec: 11/05/20 12:43 AW [id number]) Medical Review Prior Functional Status Medical History Reviewed Yes Communication WNL. Pt is an effective verbal communicator. Mobility and Gait Independent without AD. Pt reports tracking ~[id number] daily steps on her activity tracker. Activities of Daily Living and IADL's Independent with all ADL and IADL's. She drives but prefers not to. She manages her own medications and finances. Social History Household Members spouse Living Arrangements House Number of Floors (Floors) Two Floors Number of Stairs To Enter/Railing? Level entrance to main level. Office and garage are downstairs - unknown number of steps with R rail descending. 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 Her , Ayaan, is available and able to provide assist at home. M2 PT-IP Current Condition Start: 11/05/20 09:00 Freq: NEEDED Status: Active Protocol: Document 11/05/20 11:06 AW (Rec: 11/05/20 12:43 AW [id number]) Physical Therapy Current Condition Current Condition Evaluation Date 11/05/20 Treatment Diagnosis hyponatremia; weakness; dizziness; difficulty in walking Onset Date 10/28/20 Precautions Other Precautions falls M3 PT-IP Subjective Start: 11/05/20 09:00 Freq: NEEDED Status: Active Protocol: Document 11/05/20 11:06 AW (Rec: 11/05/20 12:43 AW [id number]) Subjective Physical Therapy Visit Type Type Initial Evaluation Visit Start Time 10:32 Visit Stop Time 11:06 Total Visit Minutes 34 Notes Sodium levels 114 and 116 on recent draws. Limited evaluation due to weakness and confusion. Physical Therapy Visit Comments Patient Comments Pt is willing to participate with PT Patient Goals Return home with spouse support Therapy Pain Assessment Pain When Pain Assessed During Mobility Pain Present Pain Present Denied Pain M4 PT-IP Mobility and Gait Start: 11/05/20 09:00 Freq: NEEDED Status: Active Protocol: Document 11/05/20 11:06 AW (Rec: 11/05/20 12:43 AW [id number]) PT-Bed Mobility Assessment Supine to Sit Supine to Sit Standby Assistance Scooting Scooting to Edge of Bed Standby Assistance PT-Transfer Assessment Sit to and From Stand Sit to and from Stand Contact Guard Assistance Equipment Transfer Assistive Device Gait Belt Transfers Transfer Destination Chair Transfer Technique Stand Step Pivot Transfer Ability Level of Assist Standby Assistance,Contact Guard Assistance Comments Mobility Comments Pt was lying in bed as PT arrived. Orthostatic BP assessment as follows: supine - 130/71 HR 70 sitting - 121/78 HR 69 standing - 88/57 HR 79. Pt reported lightheadedness in standing, transferred to nearby chair CGA. After two minutes sitting, BP was 130/70 HR 69. Pt stood again and BP was 101/61 HR 74. Pt stated lightheadedness had cleared after standing and marching in place 2 minutes. She then ambulated in the halls 140 feet without AD. She was unsteady, requiring CGA, frequently reaching for furniture in the room but improving with distance to SBA . On return to the room, pt transferred to the chair SBA. BP after activity was 112/64 HR 68. Pt was left with call light and tray table in reach, chair alarm armed for safety. Reported orthostatic BP's to RN and documented them separately. Gait Assessment Gait Gait Assistance Required: Standby Assistance,Contact Guard Assist Distance (Feet) 140 Assistive Devices Assistive Device None,Gait Belt Gait Deviations General Gait Pattern Decreased Stride Length, Decreased Feet Clearance, Lateral Trunk Lean,Narrow Based Gait Factors Limiting Gait Function Factors Limiting Gait Function Decreased Activity Tolerance, Decreased Strength,Poor Balance,Poor Safety Awareness Comments Gait Comments See mobility comments for details. Stair Climbing Assessment Comments Stair Climbing Comments Not assessed. PT-Balance Assessment Sitting Balance and Reactions Static Sitting Balance Ability Good Dynamic Sitting Balance Ability Fair Standing Balance and Reactions Static Standing Balance Ability Fair Dynamic Standing Balance Ability Fair Device Used no AD M5 PT-IP Objective Assessments Start: 11/05/20 09:00 Freq: NEEDED Status: Active Protocol: Document 11/05/20 11:06 AW (Rec: 11/05/20 12:43 AW [id number]) Orientation Orientation/Cognition Level of Alertness Confusional State Orientation Name,Month,Place,Situation Language Function Ability No Deficits Noted Safety Awareness Decreased Safety Awareness Memory Description Short Term Impaired Gross Range of Motion Lower Extremity ROM Assessment Within Functional Limits Strength Lower Extremity Strength Hip 4-/5 Knee 4-/5 Ankle 4/5 Sensation Assessment Sensation Gross Sensation WNL Muscle Tone Muscle Tone WNL Yes Other Assessments Other Other Assessments See orthostatic BP assessment documented separately. M6 PT-IP Treatment Start: 11/05/20 09:00 Freq: NEEDED Status: Active Protocol: Document 11/05/20 11:06 AW (Rec: 11/05/20 12:43 AW [id number]) Physical Therapy Treatment Education Education Provided Safety Other Treatments Other Treatment Performed Educated pt on BP findings and need for caution with transitions from sit to stand. M7 PT-IP Assessment and Plan Start: 11/05/20 09:00 Freq: NEEDED Status: Active Protocol: Document 11/05/20 11:06 AW (Rec: 11/05/20 12:43 AW [id number]) PT Summary Assessment and Plan Potential Rehabilitation Potential Good Status of Condition at Evaluation Evolving Summary Impairments Strength,Balance,Cognition,Bed Mobility,Transfers,Gait, Activity Tolerance Assessment Summary Sharon is a 70 yo woman admitted with severe hyponatremia and recent falls. She is independent in all regards at baseline. On evaluation, she presents with weakness and confusion affecting her gait and mobility independence. Depending on progress, pt will be able to return home with spouse support once medically stable. Will continue to assess. Goals Bed Mobility Goal Independent Transfer Goal Independent Gait Goal Independent Gait Distance 300 Days to Meet Goals 5 Frequency of Treatment Frequency Of Treatment Once a Day Treatment Plan Physical Therapy Treatment Plan Bed Mobility Training,Transfer Training,Gait Training, Therapeutic Exercise,Balance Retraining,Discharge Planning, Neuromuscular Re-ed Other Recommendations and Next Treatment repeat orthostatic BP; Focus progress gait and balance training Precautions Other Precautions falls Recommendations To Nursing Amount of Assist Needed Standby Assistance Discharge Recommendations PT Discharge Recommendations Home with Assistance Transportation Needs at Discharge Private Vehicle
--- NOTE | 2020-11-05 13:00 | PM.PN.1 ---
Subjective Subjective Date Patient Seen: 11/05/20 Time Patient Seen: 08:00 Interval history: Patient overall is feeling better. She does not feel as fatigued. Energy level is better. She states that she drinks quite a bit of water in it has been difficult to be on less water than she usually drinks which is maybe up to a L in our sometimes. Does not know why. She does does not. No other changes. Exam Vital Signs (past 8 hours): - 11/05/20 08:39 11/05/20 08:53 11/05/20 09:35 Temperature 97.5 F L Pulse Rate 61 61 Pulse Rate [Orthostatic Lying] Pulse Rate [Orthostatic Sitting] Pulse Rate [Orthostatic Standing] Respiratory Rate 18 Blood Pressure 118/66 188/66 H Blood Pressure [Orthostatic Lying] Blood Pressure [Orthostatic Sitting] Blood Pressure [Orthostatic Standing] Pulse Oximetry 99 98 11/05/20 11:00 11/05/20 11:40 Temperature 97.8 F Pulse Rate Pulse Rate [Orthostatic Lying] 70 Pulse Rate [Orthostatic Sitting] 69 Pulse Rate [Orthostatic Standing] 79 Respiratory Rate Blood Pressure 110/69 Blood Pressure [Orthostatic Lying] 130/71 Blood Pressure [Orthostatic Sitting] 121/78 Blood Pressure [Orthostatic Standing] 88/57 L Pulse Oximetry Oxygen Delivery Method Room Air Oxygen Flow Rate 0 Narrative Exam Narrative: Alert female no acute distress Lungs are clear. Heart regular rate and rhythm. Neurologic exam is normal Objective Labs Result Diagrams: 11/05/20 05:50 11/05/20 05:50 Labs: Laboratory Results - last 24 hr 11/04/20 11/04/20 11/05/20 13:00 13:00 05:50 WBC 7.1 RBC 4.13 Hgb 13.5 Hct 36.5 MCV 88.5 MCH 32.8 MCHC 37.1 H RDW 12.5 Plt Count 212 Neut % (Auto) 67.2 Lymph % (Auto) 17.7 L [place] % (Auto) 14.5 H Eos % (Auto) 0.5 L Baso % (Auto) 0.1 Neut # (Auto) 4800 Lymph # (Auto) 1300 [place] # (Auto) 1000 H Eos # (Auto) 0 Baso # (Auto) 0 Sodium Potassium Chloride Carbon Dioxide BUN Creatinine Estimated GFR BUN/Creatinine Ratio Glucose Calcium Phosphorus Magnesium SARS-CoV-2 (PCR) Negative Negative 11/05/20 05:50 WBC RBC Hgb Hct MCV MCH MCHC RDW Plt Count Neut % (Auto) Lymph % (Auto) [place] % (Auto) Eos % (Auto) Baso % (Auto) Neut # (Auto) Lymph # (Auto) [place] # (Auto) Eos # (Auto) Baso # (Auto) Sodium 116 L* Potassium 2.8 L Chloride 79 L Carbon Dioxide 33 H BUN 10 Creatinine 0.54 Estimated GFR > 60.0 BUN/Creatinine Ratio 18.5 Glucose 109 Calcium 9.1 Phosphorus 2.5 L Magnesium 1.9 SARS-CoV-2 (PCR) [facility] Medical History Cataract (lens) fragments in eye following cataract surgery, right eye Detached retina, right Eczema History of colon polyps History of pneumonia Hyperlipidemia Psoriasis Skin cancer Surgical History History of colonoscopy S/P YAG capsulotomy, right Social History household members: spouse Smoking Status: Former smoker Assessment & Plan Assessment & Plan narrative: hyponatremia. Probably a combination of her hydrochlorothiazide and her excessive water intake which we discussed. We discussed options. She understands. We discussed the reasoning behind her fluid restriction. We discussed goals. we will restart saline continue water restriction re-evaluate tomorrow. Hoping by Thursday we can go home. Hypokalemia. Not stable. Will give IV replacement and recheck this afternoon. Depending on where we are may need to restart IV or we can start oral if were better off. hypochloremia. Probably secondary to above electrolyte abnormalities. No other change. Weakness. Probably secondary to metabolic changes. No evidence of underlying central pathology. Will follow from there. Fall. Probably secondary to her weakness secondary to her electrolyte abnormality certainly normal exam today. No other change. Hypothyroidism stable. Hyperlipidemia. Stable. Hypertension. Doing well. Will have to follow as outpatient with medication change. But currently doing well. Code full. DVT prophylaxis on Lovenox. Disposition. Seems to be doing well. Will follow. Expect 48 hours at least
[2020-11-05] MEDS: ATORVASTATIN 20 MG TABLET 10 MG PO (21:19)
[2020-11-05] MEDS: CHOLECALCIFEROL (VITAMIN D3) 1,000 UNIT TABLET 2000 UNIT PO (21:20)
[2020-11-05] MEDS: LEVOTHYROXINE 75 MCG TABLET PO (21:20)
--- NOTE | 2020-11-05 23:38 | PC.NURSE ---
A&O X1; impulsive; bed/chair alarm, door open to nurse station; fluid restriction @ 350 mL for shift; output 500 mL to bsc
[2020-11-06] VITALS (7 sets, daily range): BP systolic 131–164; BP diastolic 59–84; PULSE 55–65; RESP 16–17; TEMP 36.2–36.6; O2SAT 95–98
[2020-11-06] MEDS: ACETAMINOPHEN 325 MG TABLET 650 MG PO (00:53)
[2020-11-06] MEDS: POTASSIUM CHLORIDE IN WATER 10 MEQ/100 ML PIGGYBACK 66.667 MEQ IV (01:28)
--- NOTE | 2020-11-06 02:00 | PC.NURSE ---
patient is alert and oriented except to place and situation but is also forgetful and impulsive. Breath sounds CTA with RA sat of 98%; continuous pulse oximetry not on as causes increased restlessness. HRR but bradycardic; telemetry reading was SB w/1st degree AVB with rate of 57. Denies nausea. BT present and abdomen is soft. Denies dysuria or frequency but states she does have urgency; has been continent. Is able to move self in bed. PERSONAL PROPERTY APPRAISER reports patient up to bathroom/BSC with 1 assist + walker as was shaky and unsteady. Had SCD's on at shift change but with patient restlessness and attempts to crawl out of bed without calling for assistance SCD's were removed. Complained of 5/10 back pain but did not want to take Tramadol as she states she gets nauseated from it and requested she only get Tylenol and was medicated as requested with pain declining to 2/10. Fall risk score is high and bed alarm is activated. Continues on fluid restriction.
[2020-11-06 06:22] LABS: BUN Creatinine Ratio 19.1 (6-22); Blood Urea Nitrogen 9 mg/dL (7-17); Carbon Dioxide 28 mmol/L (22-32); Chloride 93 mmol/L (98-107); Estimated Glomerular Filt Rate > 60.0 mL/min (>60); Glucose 104 mg/dL (80-110); HEMOLYSIS < 15 (0-50); Phosphorous 2.5 mg/dL (2.8-4.1); Potassium 3.8 mmol/L (3.4-5.1); Sodium 125 mmol/L (137-145)
[2020-11-06] MEDS: KCL 40 MEQ IN NS 1,000 ML 84 MEQ IV (06:37)
[2020-11-06 07:35] LABS: Add Manual Diff / Slide Review NO; Basophils Absolute Auto 0 /uL (0-100); Basophils Percent Auto 0.3 % (0-2); Eosinophils Absolute Auto 100 /uL (0-450); Eosinophils Percent Auto 1.5 % (2-4); Hematocrit 36.4 % (36-46); Hemoglobin 13.2 g/dL (12.0-16.0); Lymphocytes Absolute Auto 1300 /uL (1100-4500); Lymphocytes Percent Auto 22.2 % (25-40); Mean Corpuscular HGB Conc 36.3 % (30-36); Mean Corpuscular Hemoglobin 33.2 PG (26-34); Mean Corpuscular Volume 91.5 fL (80-100); Monocytes Absolute Auto 900 /uL (0-900); Monocytes Percent Auto 15.2 % (3-14); Neutrophils Absolute Auto 3500 /uL (1500-7000); Neutrophils Percent Auto 60.8 % (50-75); Platelet Count 207 X10^3/uL (150-400); Red Blood Cell Count 3.98 X10^6/uL (4.0-5.2); Red Cell Distribution Width 12.4 % (11.6-14.8); White Blood Cell Count 5.8 X10^3/uL (4.5-11.0)
--- NOTE | 2020-11-06 08:32 | P.PN_ITS ---
Subjective Subjective Date Patient Seen: 11/06/20 Time Patient Seen: 08:32 Interval history: Patient feeling a small bit hung over today. She does not really remember whether not she is or how she felt yesterday. But overall has no new complaints today. No headaches no visual symptoms no muscle pain. No new neurologic symptoms. Exam Vital Signs (past 8 hours): - 11/06/20 01:12 11/06/20 04:52 Temperature 97.3 F L 97.2 F L Pulse Rate 64 64 Respiratory Rate 16 16 Blood Pressure 143/73 H 140/65 Pulse Oximetry 98 95 Oxygen Delivery Method Room Air Oxygen Flow Rate 0 Narrative Exam Narrative: Alert elderly female lying in bed tired in appearance in no acute distress. Lungs are clear. Heart regular rate and rhythm. Neurologic exam is nonfocal Objective Labs Result Diagrams: 11/06/20 06:00 11/06/20 06:00 Labs: Laboratory Results - last 24 hr 11/06/20 11/06/20 06:00 06:00 WBC 5.8 RBC 3.98 L Hgb 13.2 Hct 36.4 MCV 91.5 D MCH 33.2 MCHC 36.3 H RDW 12.4 Plt Count 207 Neut % (Auto) 60.8 Lymph % (Auto) 22.2 L [place] % (Auto) 15.2 H Eos % (Auto) 1.5 L Baso % (Auto) 0.3 Neut # (Auto) 3500 Lymph # (Auto) 1300 [place] # (Auto) 900 Eos # (Auto) 100 Baso # (Auto) 0 Sodium 125 L Potassium 3.8 Chloride 93 L Carbon Dioxide 28 BUN 9 Creatinine 0.47 L Estimated GFR > 60.0 BUN/Creatinine Ratio 19.1 Glucose 104 Calcium 9.0 Phosphorus 2.5 L Magnesium 2.0 [facility] Medical History Cataract (lens) fragments in eye following cataract surgery, right eye Detached retina, right Eczema History of colon polyps History of pneumonia Hyperlipidemia Psoriasis Skin cancer Surgical History History of colonoscopy S/P YAG capsulotomy, right Social History household members: spouse Smoking Status: Former smoker Assessment & Plan Assessment & Plan narrative: Hypokalemia. Much improved after aggressive replacement IV yesterday. Currently in normal range. At this point we are going to discontinue IV replacement and hold p.o. replacements and she has not required this in the past and re-evaluate in a.m.. Hyponatremia. Trending in the right direction. Seems to be doing well. Will discontinue normal saline continue fluid restrictions and continue to follow. I suspect this is a combination of her diuretic in her aggressive water drinking period which we have discussed extensively. Will need to follow as an outpatient. Hypochloremia stable. Continues to improve. Weakness. Will continue physical therapy. Suspect will not need as outpatient will see what they recommend today. Hypothyroidism stable Hyperlipidemia stable Hypertension. Blood pressure looks good off of hydrochlorothiazide will need to follow as outpatient. Code status full. DVT prophylaxis on Lovenox. Disposition. Seems to be doing well. Will follow. Expect discharge in a.m. if all continues to improve
[2020-11-06] MEDS: METOPROLOL IR 50 MG TABLET PO ×2 (10:00→21:03)
[2020-11-06] MEDS: MULTIVITAMIN 1 TABLET 2 TAB PO (10:00)
[2020-11-06] MEDS: ENOXAPARIN 40 MG/0.4 ML SYRINGE SUBCUT (10:00)
[2020-11-06] MEDS: SODIUM CHLORIDE 0.9% FLUSH 10 ML IV ×3 (10:00→21:03)
[2020-11-06] MEDS: LOSARTAN 50 MG TABLET 100 MG PO (10:00)
--- NOTE | 2020-11-06 10:56 | CM.DPC ---
DCP Cont: Met with patient in her room. She was sitting up in her chair, feeling somewhat better. Called Dr. Emmanuel to confirm that she is not ready for discharge today. Mentioned to him that she is observation, and he was surprised, due to her sodium level. Jonathan in [facility] will most likely be changing to inpatient, received verbal from Dr. Emmanuel to do so. He took her off of the IV fluids to see how she will do with her electrolytes today. P: DCP to continue to follow. Discharge plan is for home when she is deemed medically stable. She has support from spouse at home. Brandy Fried RN/Spool Tender
--- NOTE | 2020-11-06 14:36 | PT.IPTN ---
Current Diagnoses Hypo-osmolality and hyponatremia (11/04/20) Physical Therapy Treatment Note M2 PT-IP Current Condition Start: 11/05/20 09:00 Freq: NEEDED Status: Active Protocol: Document 11/05/20 11:06 AW (Rec: 11/05/20 12:43 AW [id number]) Physical Therapy Current Condition Current Condition Evaluation Date 11/05/20 Treatment Diagnosis hyponatremia; weakness; dizziness; difficulty in walking Onset Date 10/28/20 Precautions Other Precautions falls M3 PT-IP Subjective Start: 11/05/20 09:00 Freq: NEEDED Status: Active Protocol: Document 11/06/20 14:31 LR (Rec: 11/06/20 14:36 [facility] [id number]) Subjective Physical Therapy Visit Type Type Treatment Note Visit Start Time 13:24 Visit Stop Time 13:45 Total Visit Minutes 21 Number of [employer] TILE [employer]ER Visits 0 Physical Therapy Visit Comments Patient Comments Pt's reprots she will not have to do stairs. Pt does not want to try stairs d/t concern w/stairs. M4 PT-IP Mobility and Gait Start: 11/05/20 09:00 Freq: NEEDED Status: Active Protocol: Document 11/06/20 14:31 LR (Rec: 11/06/20 14:36 [facility] [id number]) PT-Bed Mobility Assessment Rolling Type of Rolling Roll to Left Level of Assist Independent Supine to Sit Supine to Sit Minimal Assistance Scooting Scooting to Edge of Bed Independent Scooting Up and Down in Bed Independent PT-Transfer Assessment Sit to and From Stand Sit to and from Stand Standby Assistance,Use of Upper Extremities Equipment Transfer Assistive Device Gait Belt Orthotic/Prosthetic Devices or Brace: No Comments Mobility Comments supine to sit w/log roll w/min A for sitting up in bed ( presents and notes he can help at home too). Sit to stand SBA BP supine 129/73, seated 133/60, standing 131/73 . Pt then amb 400ft w/SBA w/PT with 1 LOB w/turned her head to talk to therapist towards end of walk. She was able to regain balance. She then sat SBA to chair w/chair alarm and call light in reach. Gait Assessment Gait Gait Assistance Required: Standby Assistance Distance (Feet) 400 Able to Maintain Weight Bearing Status Yes During Gait Assistive Devices Assistive Device Gait Belt Factors Limiting Gait Function Factors Limiting Gait Function Poor Balance Comments Gait Comments see above M5 PT-IP Objective Assessments Start: 11/05/20 09:00 Freq: NEEDED Status: Active Protocol: Document 11/05/20 11:06 AW (Rec: 11/05/20 12:43 AW [id number]) Orientation Orientation/Cognition Level of Alertness Confusional State Orientation Name,Month,Place,Situation Language Function Ability No Deficits Noted Safety Awareness Decreased Safety Awareness Memory Description Short Term Impaired Gross Range of Motion Lower Extremity ROM Assessment Within Functional Limits Strength Lower Extremity Strength Hip 4-/5 Knee 4-/5 Ankle 4/5 Sensation Assessment Sensation Gross Sensation WNL Muscle Tone Muscle Tone WNL Yes Other Assessments Other Other Assessments See orthostatic BP assessment documented separately. M6 PT-IP Treatment Start: 11/05/20 09:00 Freq: NEEDED Status: Active Protocol: Document 11/06/20 14:31 [facility] (Rec: 11/06/20 14:36 [facility] [id number]) Physical Therapy Treatment Other Treatments Other Treatment Performed safety for reaching back & safety w/edu re: sitting down immediately if feel dizzy and to wait before getting up to asses for lightheadedness. Edu for OP PT for balance as pt voices concerns w/her blance M7 PT-IP Assessment and Plan Start: 11/05/20 09:00 Freq: NEEDED Status: Active Protocol: Document 11/06/20 14:31 [facility] (Rec: 11/06/20 14:36 [facility] [id number]) PT Summary Assessment and Plan Summary Progress Towards Goals Progressing Toward Goals Assessment Summary pt is making excellent progress towards goals but does still show some imbalance w/mobility. will help at home but pt may benefit from OP PT to work on high level of balancea nd help return pt to comfortability on stairs. Goals Bed Mobility Goal Independent Transfer Goal Independent Gait Goal Independent Gait Distance 300 Days to Meet Goals 5 Frequency of Treatment Frequency Of Treatment Once a Day Treatment Plan Physical Therapy Treatment Plan Bed Mobility Training,Transfer Training,Gait Training, Therapeutic Exercise,Balance Retraining,Discharge Planning, Neuromuscular Re-ed Other Recommendations and Next Treatment repeat orthostatic BP; Focus progress gait and balance training, stairs if pt open to it Recommendations To Nursing Amount of Assist Needed Standby Assistance Discharge Recommendations PT Discharge Recommendations Home with Assistance, Outpatient PT Transportation Needs at Discharge Private Vehicle
[2020-11-06] MEDS: CHOLECALCIFEROL (VITAMIN D3) 1,000 UNIT TABLET 2000 UNIT PO (17:42)
[2020-11-06] MEDS: LEVOTHYROXINE 75 MCG TABLET PO (17:42)
[2020-11-06] MEDS: ATORVASTATIN 20 MG TABLET 10 MG PO (21:03)
--- NOTE | 2020-11-06 22:13 | PC.NURSE ---
A&Ox1. Patient is not oriented to place, date, or year. She became very upset this evening when this music writer found the patient trying to get out of bed on her own and the alarm was going off. She was crying and did not know where she was or why she was in the hospital. She was settled by calling her . Requires constant reinforcement to use her call light, she has not used it once yet. VSS except for elevated BP 146/73. Denies pain. Call light within reach, bed low, bed alarm on.
[2020-11-07 00:05] VITALS: BP 144/77; PULSE 57; RESP 16; TEMP 36.1; O2SAT 98
--- NOTE | 2020-11-07 01:00 | PC.NURSE ---
Patient oriented to self, birthdate, month and year only. Remains forgetful and impulsive. Breath sounds CTA with RA sat of 98%. HRR but bradycardic with rate of 46 apical. BP elevated but stable at 144/77. Denies nausea. BT present and is passing flatus but has not had a BM since 11/03. Denies dysuria, frequency or urgency with urination. Moves self in bed. Up to bathroom with SBA; does complain of dizziness when first getting up so had her sit on edge of bed initially. Due to history of restlessness and getting out of bed without calling for assistance we are not using continuous oximeter or SCD's at this time. Denies pain. Continues on fluid restriction. Fall risk score is high and bed alarm is activated.
[2020-11-07 05:00] VITALS: BP 153/81; PULSE 51; RESP 18; TEMP 36; O2SAT 95
[2020-11-07 06:08] LABS: Add Manual Diff / Slide Review NO; Basophils Absolute Auto 0 /uL (0-100); Basophils Percent Auto 0.4 % (0-2); Eosinophils Absolute Auto 200 /uL (0-450); Eosinophils Percent Auto 3.1 % (2-4); Hematocrit 37.1 % (36-46); Hemoglobin 13.3 g/dL (12.0-16.0); Lymphocytes Absolute Auto 1700 /uL (1100-4500); Mean Corpuscular HGB Conc 35.9 % (30-36); Mean Corpuscular Hemoglobin 32.8 PG (26-34); Mean Corpuscular Volume 91.4 fL (80-100); Monocytes Absolute Auto 900 /uL (0-900); Monocytes Percent Auto 11.6 % (3-14); Neutrophils Absolute Auto 4700 /uL (1500-7000); Neutrophils Percent Auto 62.9 % (50-75); Platelet Count 228 X10^3/uL (150-400); Red Blood Cell Count 4.06 X10^6/uL (4.0-5.2); Red Cell Distribution Width 12.5 % (11.6-14.8); White Blood Cell Count 7.5 X10^3/uL (4.5-11.0)
[2020-11-07 06:18] LABS: Blood Urea Nitrogen 8 mg/dL (7-17); Carbon Dioxide 29 mmol/L (22-32); Chloride 98 mmol/L (98-107); Estimated Glomerular Filt Rate > 60.0 mL/min (>60); Glucose 104 mg/dL (80-110); HEMOLYSIS < 15 (0-50); Magnesium 2.1 mg/dL (1.6-2.3); Phosphorous 2.5 mg/dL (2.8-4.1); Potassium 3.8 mmol/L (3.4-5.1); Sodium 130 mmol/L (137-145)
[2020-11-07 08:34] VITALS: BP 145/78; PULSE 51; RESP 16; TEMP 36.2; O2SAT 99
--- NOTE | 2020-11-07 08:46 | P.DS_ITS ---
History of Present Illness History of Present Illness Chief complaint: not felling well/ vomitting weak dizzy Narrative: Patient presented with nausea vomiting and weakness please see full physical and history by Dr. Martínez Discharge Providers Provider Date of admission: 11/04/20 16:27 Discharge Date: 11/07/20 Primary care physician: Cyrus Emmanuel MD Consults: 11/04/20 17:53 Consult to Discharge Planning Routine Comment: Consult to Physical Therapy Evaluate & Treat Comment: Physician Instructions: Evaluate and Treat Discharge provider: Cyrus Emmanuel MD Summary Hospital Course Discharge Diagnosis: Hypokalemia Hyponatremia Hypochloremia Hypertension Hypothyroidism Weakness diffuse Hyperlipidemia Hospital Course: Problem 1. Hypokalemia a. Patient was noted on admission to be significantly hypokalemic.. She was began on IV replacement plus p.o. and continue to be and require replacement. On day 2 she was began on K riders and IV replacement and did well. She then was re-evaluated and seemed to be holding steady. She was recheck it on day of discharge in seemed to be doing well off of replacement. Probably was secondary to her diuretic and excessive water intake. Will be followed. Problem 2. Hyponatremia. Main issue. Patient was found to be significantly low. Probably was cause of most of her issues. She was probably in a significa nt free water at excess. She had fluid restrictions began and a bolus of fluid and she seemed to do well. Was continued to be low. On day 2 she was started back on IV saline and that was continued to the next 24 hours with significantly improved it was discontinued and her hyponatremia remained stable. It was felt to be secondary to excessive water drinking and hydrochlorothiazide. Both of wh ich will be modified discontinuation of her hydrochlorothiazide and limitation of her water to thirst. She understands. Will try to limit to about 2 L a day. Re-evaluate in 1 week. Problem 3. Hypokalemia. Resolved with repeat placement of her potassium and sodium. She seems to be stable at this time. Problem number for Weakness generalized. No other significant changes. No evidence of central changes. Head CT was done and was found to be normal. She had no other focal abnormalities strength is improving was felt to be secondary electrolyte abnormalities will be followed as an outpatient. Problem 5. Hypertension. She seems to be doing well off her hydrochlorothiazide she will continue on losartan at lower dose and re-evaluate 1 week. May need to increase. Prescription will be sent. Problem 6. Hypothyroidism stable throughout course no change. Hyperlipidemia stable will continue current medicine. Exam Vital Signs (past 8 hours): - 11/07/20 05:00 11/07/20 08:34 Temperature 96.8 F L 97.1 F L Pulse Rate 51 L 51 L Respiratory Rate 18 16 Blood Pressure 153/81 H 145/78 H Pulse Oximetry 95 99 Oxygen Delivery Method Room Air Oxygen Flow Rate 0 Narrative Exam Narrative: Alert female lying in bed happy to be going home. Lungs are clear. Heart regular rate and rhythm. Neurologic exam peers to be completely normal and nonfocal. Objective Labs Result Diagrams: 11/07/20 05:28 11/07/20 05:28 Labs: Laboratory Results - last 24 hr 11/07/20 11/07/20 05:28 05:28 WBC 7.5 RBC 4.06 Hgb 13.3 Hct 37.1 MCV 91.4 MCH 32.8 MCHC 35.9 RDW 12.5 Plt Count 228 Neut % (Auto) 62.9 Lymph % (Auto) 22.0 L Towns % (Auto) 11.6 Eos % (Auto) 3.1 Baso % (Auto) 0.4 Neut # (Auto) 4700 Lymph # (Auto) 1700 Towns # (Auto) 900 Eos # (Auto) 200 Baso # (Auto) 0 Sodium 130 L Potassium 3.8 Chloride 98 Carbon Dioxide 29 BUN 8 Creatinine 0.42 L Estimated GFR > 60.0 BUN/Creatinine Ratio 19.0 Glucose 104 Calcium 9.0 Phosphorus 2.5 L Magnesium 2.1 [facility] Medical History Cataract (lens) fragments in eye following cataract surgery, right eye Detached retina, right Eczema History of colon polyps History of pneumonia Hyperlipidemia Psoriasis Skin cancer Surgical History History of colonoscopy S/P YAG capsulotomy, right Social History household members: spouse Smoking Status: Former smoker Discharge Assessment & Plan Assessment and Plan Assessment: See above Plan of Treatment: Plan will be to discharge home. We will follow her electrolytes in 1 week she will stay off of hydrochlorothiazide and will be on a modified fluid restriction and we will re-evaluate next week. She will call if any problems or change Discharge Plan Discharge Plan Patient Disposition: Home Discharge orders & Medications Prescriptions: New losartan 50 mg Tablet 100 mg PO DAILY Qty: 90 RF: 1 Continued LEVOTHYROXINE SODIUM (LEVOTHROID) 0.075 mg PO QDAY Qty: 0 RF: 0 metoprolol tartrate 50 MG tablet 50 mg PO BID Qty: 0 RF: 0 CHOLECALCIFEROL (VITAMIN D) 2,000 units PO QDAY Qty: 0 RF: 0 multivitamin [Multiple Vitamins] 1 EACH tablet 2 tab PO QDAY Qty: 0 RF: 0 atorvastatin 10 mg tablet 10 mg PO BEDTIME RF: 0 tramadol 50 mg tablet 50 mg PO Q6H PRN (Reason: Pain (Scale Score 4-6)) RF: 0 chlorhexidine gluconate 0.12 % mouthwash 0.5 ea PO BEDTIME RF: 0 fluoride (sodium) [PreviDent 5000 Booster Plus] 1.1 % paste 1 applic PO BID RF: 0 calcium carbonate [Tums Ultra] 400 mg calcium (1,000 mg) Tablet,Chewable 400 mg PO PRN PRN (Reason: Heartburn) RF: 0 Discontinued ondansetron HCl [Zofran] 4 mg tablet 4 mg PO Q6H PRN (Reason: nausea and vomiting) Qty: 10 RF: 0 losartan-hydrochlorothiazide 100-25 mg tablet 1 tab PO DAILY RF: 0 Follow up/Referrals: Cyrus Emmanuel MD [Primary Care Provider] - 11/14/20 (Please call for appointment) Diet/Activity/Treatments Diet: Diet as Tolerated Diet comment: Keep free fluids to 2 L or less. Skin/Wound/Dressing Care Report to your healthcare provider any signs of infection, such as:: chills, fever and night sweats Discharge Data Primary Care Provider: Cyrus Emmanuel
--- NOTE | 2020-11-07 09:45 | PT.IPTN ---
Current Diagnoses Hypo-osmolality and hyponatremia (11/04/20) Physical Therapy Treatment Note M2 PT-IP Current Condition Start: 11/05/20 09:00 Freq: NEEDED Status: Discharge Protocol: Document 11/05/20 11:06 AW (Rec: 11/05/20 12:43 AW [id number]) Physical Therapy Current Condition Current Condition Evaluation Date 11/05/20 Treatment Diagnosis hyponatremia; weakness; dizziness; difficulty in walking Onset Date 10/28/20 Precautions Other Precautions falls M3 PT-IP Subjective Start: 11/05/20 09:00 Freq: NEEDED Status: Discharge Protocol: Document 11/07/20 14:08 [facility] (Rec: 11/07/20 14:13 [facility] [id number]) Subjective Physical Therapy Visit Type Type Treatment Note Visit Start Time 09:18 Visit Stop Time 09:44 Total Visit Minutes 26 Number of HOG CUTTER Visits 0 Physical Therapy Visit Comments Patient Comments Pt agreeable to get up Therapy Pain Assessment Pain When Pain Assessed During Mobility Pain Present Pain Present Pain Reported M4 PT-IP Mobility and Gait Start: 11/05/20 09:00 Freq: NEEDED Status: Discharge Protocol: Document 11/07/20 14:08 [facility] (Rec: 11/07/20 14:13 [facility] [id number]) PT-Bed Mobility Assessment Rolling Type of Rolling Roll to Right Level of Assist Independent Supine to Sit Supine to Sit Minimal Assistance Scooting Scooting to Edge of Bed Independent PT-Transfer Assessment Sit to and From Stand Sit to and from Stand Standby Assistance,Use of Upper Extremities Equipment Transfer Assistive Device Gait Belt Orthotic/Prosthetic Devices or Brace: No Comments Mobility Comments Supine to sit pt did w/min A w /log roll w/just a hand to get up w/ very little assist. She sat EOB and BP was 131/78. Edu to sit EOB until no longer feeling lightheaded and edu on importance w/this and also standing fro at least 30 sec before walking and re edu w/ later along w/how to help get out of bed. She stood SBA at EOB and then amb to bathroom SBA and was able to don/doff underwear and wipe indep. sit<> stand toilet indep. Pt then amb in hallways 500ft ft SBA w/occ reach for objects to steady herself. Left in chair w/call light in reach w/chair alarm on. Discussed w/ OP PT and edu to stay w/her for walks Gait Assessment Gait Gait Assistance Required: Standby Assistance Distance (Feet) 500 Able to Maintain Weight Bearing Status Yes During Gait Assistive Devices Assistive Device Gait Belt Gait Deviations General Gait Pattern Decreased Stride Length, Decreased Feet Clearance Factors Limiting Gait Function Factors Limiting Gait Function Decreased Activity Tolerance, Decreased Strength,Poor Balance M5 PT-IP Objective Assessments Start: 11/05/20 09:00 Freq: NEEDED Status: Discharge Protocol: Document 11/05/20 11:06 AW (Rec: 11/05/20 12:43 AW [id number]) Orientation Orientation/Cognition Level of Alertness Confusional State Orientation Name,Month,Place,Situation Language Function Ability No Deficits Noted Safety Awareness Decreased Safety Awareness Memory Description Short Term Impaired Gross Range of Motion Lower Extremity ROM Assessment Within Functional Limits Strength Lower Extremity Strength Hip 4-/5 Knee 4-/5 Ankle 4/5 Sensation Assessment Sensation Gross Sensation WNL Muscle Tone Muscle Tone WNL Yes Other Assessments Other Other Assessments See orthostatic BP assessment documented separately. M6 PT-IP Treatment Start: 11/05/20 09:00 Freq: NEEDED Status: Discharge Protocol: Document 11/07/20 14:08 [facility] (Rec: 11/07/20 14:13 [facility] [id number]) Physical Therapy Treatment Other Treatments Other Treatment Performed see above M7 PT-IP Assessment and Plan Start: 11/05/20 09:00 Freq: NEEDED Status: Discharge Protocol: Document 11/07/20 14:08 [facility] (Rec: 11/07/20 14:13 [facility] [id number]) PT Summary Assessment and Plan Summary Progress Towards Goals Progressing Toward Goals Assessment Summary Pt is to dc home later today with and is cleared by PT for mobility. She does not have to use her stairs so stairs were not practiced but pt was heavily enocuraged to talke to MD re: OP PT referral and also edu of mvoing slower and sitting down if feel lightheaded. Frequency of Treatment Frequency Of Treatment Discharge Recommendations To Nursing Amount of Assist Needed Standby Assistance Discharge Recommendations PT Discharge Recommendations Home with Assistance, Outpatient PT Transportation Needs at Discharge Private Vehicle
[2020-11-07] MEDS: ENOXAPARIN 40 MG/0.4 ML SYRINGE SUBCUT (10:29)
[2020-11-07] MEDS: LOSARTAN 50 MG TABLET 100 MG PO (10:30)
[2020-11-07] MEDS: METOPROLOL IR 50 MG TABLET PO (10:30)
[2020-11-07] MEDS: MULTIVITAMIN 1 TABLET 2 TAB PO (10:32)
== END 2020-11-07 11:20 | disposition home or self-care (01) | DRG 641 ==
LOC: ED 13:53 → AC 16:28
PROVIDERS: Admitting Provider Internal Medicine; Emergency Provider Emergency Medicine; PCP Family Medicine; Referring Provider Emergency Medicine; Visit Provider Student in an Organized Health Care Education/Training Program
DX: E87.1 Hypo-osmolality and hyponatremia (principal); E87.6 Hypokalemia; E87.8 Other disorders of electrolyte and fluid balance, not elsewhere classified; T50.2X5A Adverse effect of carbonic-anhydrase inhibitors, benzothiadiazides and other diuretics, initial encounter; E78.5 Hyperlipidemia, unspecified; E03.9 Hypothyroidism, unspecified; I10 Essential (primary) hypertension; Z87.891 Personal history of nicotine dependence; Z20.822 Contact with and (suspected) exposure to COVID-19
CPT/HCPCS: 36415; 70450; 80048; 83735; 84100; 85025; 87635; 93005; 94762; 96365; 96366; 96375; 97116; 97162; 97535; 99285; C9803; J1650; J2405; J3480

== ENCOUNTER → 2021-01-25 10:23 | Outpatient (CLI) | payer MEDICARE, SELFPAY ==
[2020-11-04 16:38] VITALS: BMI 27.4
--- NOTE | 2021-01-25 | DI.MG.S_ITS ---
BILATERAL DIGITAL SCREENING MAMMOGRAM 3D/2D WITH CAD: 01/25/2021 CLINICAL: Routine screening. Comparison is made to exams dated: 11/29/2019 mammogram, 09/30/2018 mammogram, and 09/21/2017 mammogram - [facility]. There are scattered fibroglandular elements in both breasts. Current study was also evaluated with a Computer Aided Detection (CAD) system. There is an asymmetry in the left breast anterior depth central to the nipple seen on the craniocaudal view only. There also is an asymmetry in the left breast middle depth central to the nipple seen on the craniocaudal view only. No other significant masses, calcifications, or other findings are seen in either breast. IMPRESSION: INCOMPLETE: NEEDS ADDITIONAL IMAGING EVALUATION The asymmetry in the left breast anterior depth central to the nipple seen on the craniocaudal view only is indeterminate. Additional views with possible ultrasound are recommended. The asymmetry in the left breast middle depth central to the nipple seen on the craniocaudal view only is indeterminate. Additional views with possible ultrasound are recommended. This exam was interpreted at Station ID: [id number]. NOTE: For mammograms, a report in lay terms will be sent to the patient. Approximately 15% of breast malignancies will not be visualized mammographically. In the management of a palpable breast mass, a negative mammogram must not discourage biopsy of a clinically suspicious lesion. Electronically Signed By: Eduardo Mccarthy M.D., jr/latricia:01/25/2021 12:38:05 letter sent: Additional Imaging Needed ACR BI-RADS Category 0: Incomplete [id number]
== END ==
PROVIDERS: PCP Family Medicine; Referring Provider Family Medicine; Visit Provider Family Medicine
DX: Z12.31 Encounter for screening mammogram for malignant neoplasm of breast (principal)
CPT/HCPCS: 77063; 77067

== ENCOUNTER → 2021-02-13 13:26 | Outpatient (CLI) | payer MEDICARE, SELFPAY ==
[2020-11-04 16:38] VITALS: BMI 27.4
--- NOTE | 2021-02-13 | DI.MG.S_ITS ---
UNILATERAL LEFT DIGITAL DIAGNOSTIC MAMMOGRAM 3D/2D WITH ADDITIONAL VIEWS: 02/13/2021 CLINICAL: Additional evaluation requested from prior study. Comparison is made to exams dated: 01/25/2021 mammogram, 11/29/2019 mammogram, and 09/30/2018 mammogram - [facility]. There are scattered fibroglandular elements in left breast. There is an oval equal density asymmetry with an indistinct margin in the left breast middle depth central to the nipple seen on the craniocaudal view only. This is less prominent. There also is an oval equal density asymmetry with an indistinct margin in the left breast sub-areolar depth central to the nipple seen on the craniocaudal view only. This is less prominent. No other significant masses or calcifications are seen in the breast. IMPRESSION: INCOMPLETE: NEEDS ADDITIONAL IMAGING EVALUATION The oval equal density asymmetry in the left breast middle depth central to the nipple seen on the craniocaudal view only is indeterminate. An ultrasound is recommended. The oval equal density asymmetry in the left breast sub-areolar depth central to the nipple seen on the craniocaudal view only is indeterminate. An ultrasound is recommended. Ultrasound will be performed immediately following the current exam. This exam was interpreted at Station ID: [id number]. NOTE: For mammograms, a report in lay terms will be sent to the patient. Approximately 15% of breast malignancies will not be visualized mammographically. In the management of a palpable breast mass, a negative mammogram must not discourage biopsy of a clinically suspicious lesion. Electronically Signed By: Jonathan Jain M.D. ddp/:02/13/2021 14:18:23 ACR BI-RADS Category 0: Incomplete [id number]
--- NOTE | 2021-02-13 | DI.US.S_ITS ---
LIMITED ULTRASOUND OF LEFT BREAST AND AXILLA: 02/13/2021 CLINICAL: Patient returns today to evaluate 2 focal asymmetries in the left breast. Comparison is made to exams dated: 02/13/2021 mammogram, 01/25/2021 mammogram, 11/29/2019 mammogram, 09/30/2018 mammogram, 09/21/2017 mammogram, and 08/01/2016 mammogram - [facility]. Color flow and real-time ultrasound of the left breast 3 o'clock, 9 o'clock, 12 o'clock, retroareolar, and axilla regions were performed on the areas of interest. There is a 1.1 cm x 0.4 cm x 1.1 cm oval mass with indistinct and circumscribed margins in the left breast at 5 o'clock in the retroareolar region 1 cm from the nipple. This oval mass is hypoechoic and resembles an intraductal mass. This likely correlates with mammography findings. Color flow imaging demonstrates that there is no vascularity present. No suspicious enlarged lymph nodes were seen sonographically in the left axilla. IMPRESSION: SUSPICIOUS OF MALIGNANCY The 1.1 cm x 0.4 cm x 1.1 cm oval mass in the left breast is suspicious of malignancy. An ultrasound guided biopsy is recommended. There is no abnormality seen in the left breast to correspond with the mammography finding in the middle depth central to the nipple. The findings were discussed with the patient at the conclusion of the study by Dr. August. This exam was interpreted at Station ID: [id number]. Electronically Signed By: Jonathan contreras/:02/13/2021 14:51:42 letter sent: Biopsy Required Ultrasound BI-RADS: 4 Suspicious for malignancy
== END ==
PROVIDERS: PCP Family Medicine; Referring Provider Family Medicine; Visit Provider Family Medicine
DX: N63.23 Unspecified lump in the left breast, lower outer quadrant (principal); R92.8 Other abnormal and inconclusive findings on diagnostic imaging of breast
CPT/HCPCS: 76642; 77065; G0279

== ENCOUNTER → 2021-02-21 10:10 | Outpatient (CLI) | payer MEDICARE, SELFPAY ==
[2020-11-04 16:38] VITALS: BMI 27.4
--- NOTE | 2021-02-21 | PATH_ITS ---
[facility] Accession Number: [id number] . 01 Material submitted: . breast - LEFT BREAST MASS 5:30 1CMFN . 01 Diagnosis: Left Breast Mass, 5:30, 1 cm from the Nipple, Needle Core Biopsy: Fatty breast parenchyma with focal stromal fibrosis. No evidence of calcifications, atypia, in situ or invasive malignancy. See comment. MRV 02/26/2021 1611 Local . 01 Comment: Deeper sections were examined. Clinical and radiographic correlation is recommended. As part of ongoing quality system manager, this case is also reviewed by Drs. Dulce Juarez and Isela Schumacher who concur with the given interpretation. . 01 Electronically signed: . Beti Adams MD, Pathologist NPI- [id number] . 01 Gross description: . Received one formalin-filled container, labeled with the patient's name and designated left breast mass 5:30, 1 cm FN. The specimen is received with a plastic filter in container, sample loose in container and consists of multiple yellow-chacko pieces of soft tissue which range in size from 0.3 x 0.2 x 0.2 cm to 1.2 x 0.3 x 0.3 cm. All fragments are totally submitted in one cassette. Possible collection date and time per requisition: 02/21/21 at 11:14. Total fixation time: Approximately 16 hours. ([id number]) /FRR 02/22/2021 0246 Local . 01 Pathologist provided ICD-10: N63.20 . 01 CPT . 017363 Performed at: 01 [facility] [address] [place] [address] [address], [place], [place] [id number] MD Jonathan Holguin MD Phone: [phone]
--- NOTE | 2021-02-21 10:29 | DI.US.S_ITS ---
Patient Name: MARSHA ROSAS date: 1950 Sex: F Attending Physician: Lien Indications: Date: 02/21/2021 11:18 At the request of: VANITA WALKER Procedure: US bx breast perc w vac device ULTRASOUND GUIDED BIOPSY LEFT BREAST USING VACUUM DEVICE WITH MARKING DEVICE INSERTED AND POST ULTRASOUND IMAGIN02/21/2021 CLINICAL: Left breast mass. PATIENT CONSENT: Risks (minor bleeding, infection, vasovagal reaction and repeat procedure), benefits and alternatives were explained to the patient and written informed consent was obtained. Correlation is made to exams dated: 02/13/2021 ultrasound, 02/13/2021 mammogram, 01/25/2021 mammogram, and 11/29/2019 mammogram - [facility]. An ultrasound guided biopsy using real-time ultrasound was performed for the indistinct lobulated mass located in the left breast at 5 o'clock anterior depth. This was described on the previous ultrasound report. The skin was prepped in the usual manner. Local anesthetic was administered to the access site. A skin radha was made in the breast. The abnormality was approached from the lateral aspect. A biopsy needle was placed adjacent to the abnormality under ultrasound guidance. Once the needle was documented to be in the correct location, a specimen was obtained using the Mammotome biopsy system. A titanium clip was inserted into the biopsy cavity. A sterile dressing was applied to the access site. Post procedure ultrasound imaging demonstrates the location device at the targeted area. The specimen was sent to the laboratory for pathological analysis. IMPRESSION: ULTRASOUND GUIDED BIOPSY BENIGN Ultrasound guided biopsy of the mass in the left breast at 5 o'clock anterior depth was successful. Pathology indicates benign stromal fibrosis. Pathology results are concordant with imaging findings. Return to annual mammogram screening schedule is recommended. This exam was interpreted at Station ID: [id number]. Dr Robert August fs,acr/:03/01/2021 10:24:17
--- NOTE | 2021-02-21 11:20 | DI.MG.S_ITS ---
Indications: Date: 02/21/2021 11:04 At the request of: VANITA WALKER Procedure: MM diagnostic mammo [id number] UNILATERAL LEFT DIGITAL DIAGNOSTIC MAMMOGRAM 3D/2D POST-PROCEDURE IMAGING FOR MARKER PLACEMENT: 02/21/2021 CLINICAL: Left post clip. Comparison is made to exams dated: 02/13/2021 ultrasound, 02/13/2021 mammogram, and 01/25/2021 mammogram - [facility]. There are scattered fibroglandular elements in left breast. There is a marker clip in the appropriate position in the left breast at 530 o'clock in the retroareolar region. This marker clip placement is at the biopsy site. This correlates with the biopsy. IMPRESSION: POST PROCEDURE MAMMOGRAM FOR MARKER PLACEMENT There was a successful marker clip placement in the left breast in the retroareolar region. There is no abnormality seen in the left breast to correspond with the mammography finding in the middle depth central to the nipple. This exam was interpreted at Station ID: [id number]. NOTE: For mammograms, a report in lay terms will be sent to the patient. Approximately 15% of breast malignancies will not be visualized mammographically. In the management of a palpable breast mass, a negative mammogram must not discourage biopsy of a clinically suspicious lesion. Electronically Signed By: Dr Robert Shafer MD fs/:02/26/2021 08:38:53 Continued Report - Page 2 of 2 Patient Name: MARSHA ROSAS date: 1950 Sex: F Attending Physician: Lien Indications: Date: 02/21/2021 11:04 At the request of: VANITA WALKER Procedure: MM diagnostic mammo [id number] ACR BI-RADS Category Post-procedure mammogram for marker placement
== END ==
PROVIDERS: PCP Family Medicine; Referring Provider Family Medicine; Visit Provider Family Medicine
DX: N60.32 Fibrosclerosis of left breast (principal)
CPT/HCPCS: 19083; 77065

== ENCOUNTER → 2021-03-28 13:30 | Outpatient (CLI) | payer MEDICARE, SELFPAY ==
[2020-11-04 16:38] VITALS: BMI 27.4
--- NOTE | 2021-03-28 | DI.RAD.S_ITS ---
PROCEDURE: XR LUMBAR SPINE 2-3V INDICATIONS: Low back pain, unspecified TECHNIQUE: 3 views of the lumbar spine were acquired. COMPARISON: None. FINDINGS: Bones: 5 [id number] vertebrae are present. There is mild to moderate levoscoliosis centered at L2 level. Degenerative endplate changes and bilateral facet arthrosis throughout lumbar spine is seen. Grade 1 anterolisthesis of L3 on L4 and L4 on L5 is also seen. No vertebral body compression fractures. No suspicious bony lesions. Soft tissues: Overlying bowel gas pattern is normal. No suspicious soft tissue calcifications. IMPRESSION: Degenerative disc disease throughout lumbar spine more prominent at L4-5 and L5-S1 levels. Grade 1 anterolisthesis of L3 on L4 and L4 on L5. No acute compression fracture. Mild scoliosis as above. Dictated by: Leandro Busch M.D. on 03/28/2021 at 14:48 Approved by: Leandro Busch M.D. on 03/28/2021 at 14:57
== END ==
PROVIDERS: PCP Family Medicine; Referring Provider Family Medicine; Visit Provider Family Medicine
DX: M54.50 Low back pain, unspecified (principal); M51.36 Other intervertebral disc degeneration, lumbar region; M51.37 Other intervertebral disc degeneration, lumbosacral region; M43.16 Spondylolisthesis, lumbar region; M41.86 Other forms of scoliosis, lumbar region
CPT/HCPCS: 72100

== ENCOUNTER 2021-09-12 01:00 | Observation (INO) | payer MEDICARE, SELFPAY ==
[2020-11-04 16:38] VITALS: BMI 27.4
[2021-09-12] VITALS (49 sets, daily range): BP systolic 87–210; BP diastolic 51–117; PULSE 47–87; RESP 11–35; TEMP 36.8–36.9; O2SAT 60–100; BMI 26.6; BMI 27.1
--- NOTE | 2021-09-12 01:11 | DI.RAD.S_ITS ---
PROCEDURE: XR CHEST 1V INDICATIONS: chest pain TECHNIQUE: One view of the chest was acquired. COMPARISON: [facility], , CHEST 2 VIEW, 09/05/2014, 10:45. FINDINGS: Surgical changes and devices: None. Lungs and pleura: Lungs are clear. No pleural effusions or pneumothorax. Mediastinum: Heart size is within normal limits for technique. Bones and chest wall: There is irregularity of the right 5th and 6th ribs laterally compatible with sequelae of prior fractures. Overlying soft tissues appear unremarkable. IMPRESSION: 1. No acute cardiopulmonary disease. Dictated by: Jonathan Jain M.D. on 09/12/2021 at 1:47 Approved by: Jonathan Jain M.D. on 09/12/2021 at 1:49
--- NOTE | 2021-09-12 01:12 | ED.CHESTPAIN ---
HPI - Chest Pain General Chief Complaint: Chest Pain Stated Complaint: CHEST PAINS Time Seen by Provider: 09/12/21 01:11 Source: patient and family Mode of arrival: Ambulatory Limitations: no limitations History of Present Illness HPI narrative: This is a 71-year-old female who states she developed left substernal chest pressure about 8:30 this evening. She states that increased as the evening progressed. She had told her went a little bit into her neck, she states she has had some down her left arm. She denies any radiation to her back. She has not been diaphoretic she felt short of breath when it was at its most intense. She has had some mild nausea but no vomiting. No lightheadedness or syncope. She has not had similar symptoms in the past. She describes is a 2 a 10 at this time. She did note that her blood pressures been elevated this evening in the 190s it she has been checking it regularly it has typically been in the 140s. She is on multiple medications for hypertension, dyslipidemia on aspirin 81 mg daily. She has been following with her physician monthly for blood pressure checks as her hypertension has been difficult to control. Her last check was a week ago Thursday they did not adjust her medications. She has had prior shoulder reconstruction, no cardiac stents or interventions. She is allergic to codeine, hydrocodone. No tobacco, occasional alcohol, no illicit. Dr. Emmanuel is her primary care physician. Related Data Home Medications Medication Instructions Recorded Confirmed CHOLECALCIFEROL (VITAMIN D) 2,000 units PO QDAY #0 12/24/12 11/04/20 LEVOTHYROXINE SODIUM (LEVOTHROID) 0.075 mg PO QDAY #0 12/24/12 11/04/20 metoprolol tartrate 50 mg tablet 50 mg PO BID #0 12/24/12 11/04/20 multivitamin (Multiple Vitamins) 2 tab PO QDAY #0 12/26/15 11/04/20 calcium carbonate 400 mg calcium 400 mg PO PRN PRN 12/03/18 11/04/20 (1,000 mg) chewable tablet (Tums Ultra) atorvastatin 10 mg tablet 10 mg PO BEDTIME 11/04/20 11/04/20 chlorhexidine gluconate 0.12 % 0.5 ea PO BEDTIME 11/04/20 11/04/20 mouthwash fluoride (sodium) 1.1 % dental 1 applic PO BID 11/04/20 11/04/20 paste (PreviDent 5000 Booster Plus) tramadol 50 mg tablet 50 mg PO Q6H PRN 11/04/20 11/04/20 Previous Rx's Medication Instructions Recorded losartan 50 mg tablet 100 mg PO DAILY #90 tab 11/07/20 Allergies Allergy/AdvReac Type Severity Reaction Status Date / Time codeine [CODEINE] AdvReac Intermediate VOILENTLY Verified 10/28/20 14:01 NAUSEATED hydrocodone [HYDROCODONE] AdvReac Intermediate nausea/vomi Verified 10/28/20 14:01 ting Review of Systems Review of Systems ROS Unobtainable: All systems reviewed & are unremarkable except as noted in HPI and below Patient History Medical History Cataract (lens) fragments in eye following cataract surgery, right eye Detached retina, right Eczema History of colon polyps History of pneumonia Hyperlipidemia Psoriasis Skin cancer Surgical History History of colonoscopy S/P YAG capsulotomy, right Social History household members: spouse Smoking Status: Former smoker Smoking Status: Former smoker alcohol intake frequency: 0-2 drinks per day Alcohol type: beer Substance Use Type: does not use Exam Narrative Exam Narrative: GENERAL: Alert and oriented x three, female in mild distress. HEENT: Head normocephalic, atraumatic, EOMI, pupils reactive, face symmetric, moist mucous membranes NECK: Supple, full range of motion CARDIOVASCULAR: Regular rate and rhythm without murmurs, rubs or gallops. No rash or skin changes. RESPIRATORY: Breath sounds equal bilaterally, no wheezes rales or rhonchi. ABDOMEN: Soft, nontender. Normoactive bowel sounds all 4 quadrants. No guarding or rebound, rigidity, no mass : No CVA tenderness EXTREMITIES: Normal range of motion, no clubbing or edema. Neurovascularly intact NEUROLOGICAL: Cranial nerves II through XII grossly intact. Moving all extremities SKIN: Warm, dry, no petechiae, no rashes or lesions. Initial Vital Signs Initial Vital Signs: Vital Signs Temperature 98.4 F 09/12/21 01:10 Pulse Rate 60 09/12/21 01:10 Respiratory Rate 15 09/12/21 01:10 Blood Pressure 210/111 H 09/12/21 01:10 Pulse Oximetry 97 09/12/21 01:10 Course Orders Ordered: ED Orders 09/12/21 EKG-12 Lead Routine 09/12/21 01:11 XR chest 1V Stat EKG-12 Lead Stat 09/12/21 01:20 Complete Blood Count AUTO DIFF Stat Comprehensive Metabolic Panel Stat Lipase Stat NT-proBNP (BNP-Adult 18+) Stat Partial Thromboplastin Time Stat Prothrombin Time INR Stat Troponin & CK Cardiac Panel Stat 09/12/21 02:20 COVID19 -Nasal RAPID/Pre-Proc Stat 09/12/21 03:30 Troponin I Stat Sodium Chloride (Normal Saline 0.9%) 1,000 mls @ 150 mls/hr IV CONT MARYJANE Last Admin: 09/12/21 01:34 Dose: 150 mls/hr Documented by: YOLANDA Nitroglycerin (Nitroglycerin 0.4 Mg Sl Tab) 0.4 mg SL [id number] PRN PRN Reason: Chest Pain Last Admin: 09/12/21 02:00 Dose: 0.4 mg Documented by: YOLANDA Discontinued Medications Aspirin (Aspirin 81 Mg Chew Tab) 243 mg PO NOW ONE Stop: 09/12/21 01:12 Last Admin: 09/12/21 01:34 Dose: 243 mg Documented by: YOLANDA Nitroglycerin (Nitroglycerin Oint 1 Inch/Gm Oint...G.) 0.5 inch TOP NOW ONE Stop: 09/12/21 05:10 Reevaluation(s) Reevaluation #1: Patient's chest pain resolved after nitro sublingual. Consultations Consultation #1: Dr. Rust for Dr. Emmanuel, accepts for chest pain observation versus hypertensive urgency. Discussed she has been taking her blood pressure medication. We did place nitro paste as her blood pressure was continuing to elevate. It improved significantly after nitro sublingual and patient's chest pain resolved but as the sublingual nitro these patients distant her hypertension has been slowly increasing particularly her diastolic. Labs, EKG and imaging reviewed. Time: 04:34 Vital Signs Vital signs: Vital Signs - 8 hr 09/12/21 01:10 09/12/21 01:22 09/12/21 01:30 Temperature 98.4 F Pulse Rate 60 57 L 61 Respiratory Rate 15 18 23 Blood Pressure 210/111 H Pulse Oximetry 97 97 97 09/12/21 01:37 09/12/21 02:00 09/12/21 02:01 Temperature Pulse Rate 60 57 L 57 L Respiratory Rate 18 19 Blood Pressure 198/92 H 162/86 H 162/86 H Pulse Oximetry 96 96 96 09/12/21 02:05 09/12/21 02:10 09/12/21 02:15 Temperature Pulse Rate 69 61 59 L Respiratory Rate 22 27 H Blood Pressure 119/65 119/70 134/65 Pulse Oximetry 95 94 94 09/12/21 02:21 09/12/21 02:25 09/12/21 02:30 Temperature Pulse Rate 58 L 55 L 57 L Respiratory Rate Blood Pressure 159/70 H 153/71 H 157/72 H Pulse Oximetry 95 95 95 09/12/21 02:35 09/12/21 02:40 09/12/21 02:50 Temperature Pulse Rate 53 L 55 L 55 L Respiratory Rate 22 Blood Pressure 141/69 H 160/74 H 168/85 H Pulse Oximetry 95 95 96 09/12/21 03:00 09/12/21 03:30 Temperature Pulse Rate 53 L Respiratory Rate 21 25 H Blood Pressure 149/77 H 168/79 H Pulse Oximetry 96 95 MDM - Chest Pain Lab Data Result diagrams: 09/12/21 01:20 09/12/21 01:20 Labs: Lab Results 09/12/21 09/12/21 09/12/21 Range/Units 01:20 01:20 01:20 WBC 5.7 (4.5-11.0) X10^3/uL RBC 4.27 (4.0-5.2) X10^6/uL Hgb 13.4 (12.0-16.0) g/dL Hct 38.4 (36-46) % MCV 89.8 (80-100) fL MCH 31.3 (26-34) PG MCHC 34.8 (30-36) % RDW 13.7 (11.6-14.8) % Plt Count 168 (150-400) X10^3/uL Neut % (Auto) 63.1 (50-75) % Lymph % (Auto) 22.1 L (25-40) % [place] % (Auto) 9.6 (3-14) % Eos % (Auto) 4.8 H (2-4) % Baso % (Auto) 0.4 (0-2) % Neut # (Auto) 3600 (1964-5776) /uL Lymph # (Auto) 1300 (6774-0833) /uL [place] # (Auto) 500 (0-900) /uL Eos # (Auto) 300 (0-450) /uL Baso # (Auto) 0 (0-100) /uL PT 12.7 (10.1-12.7) SECONDS INR 1.1 (0.9-1.3) APTT 31 (26.4-36.2) SECONDS Sodium 135 L (137-145) mmol/L Potassium 3.5 (3.4-5.1) mmol/L Chloride 104 (98-107) mmol/L Carbon Dioxide 24 (22-32) mmol/L BUN 14 (7-17) mg/dL Creatinine 0.58 (0.52-1.04) mg/dL Estimated GFR > 60 (>60) mL/min BUN/Creatinine Ratio 24.1 H (6-22) Glucose 115 H (80-110) mg/dL Calcium 8.8 (8.4-10.2) mg/dL Total Bilirubin 0.8 (0.2-1.3) mg/dL AST 25 (14-36) IU/L ALT 23 (<35) IU/L Alkaline Phosphatase 82 (38-126) U/L Total Creatine Kinase 57 (30-135) U/L CK-MB (CK-2) TNP CK-MB (CK-2) Rel Index TNP Troponin I < 0.012 (0.01-0.034) ng/mL NT-Pro-B Natriuret Pep 390 H (<125) pg/mL Total Protein 6.5 (6.3-8.2) g/dL Albumin 4.0 (3.5-5.0) g/dL Globulin 2.5 (1.7-4.1) g/dL Albumin/Globulin Ratio 1.6 (1.0-2.8) Lipase 192 (23-300) U/L SARS-CoV-2 (PCR) (Negative) 09/12/21 09/12/21 Range/Units 02:20 03:30 WBC (4.5-11.0) X10^3/uL RBC (4.0-5.2) X10^6/uL Hgb (12.0-16.0) g/dL Hct (36-46) % MCV (80-100) fL MCH (26-34) PG MCHC (30-36) % RDW (11.6-14.8) % Plt Count (150-400) X10^3/uL Neut % (Auto) (50-75) % Lymph % (Auto) (25-40) % [place] % (Auto) (3-14) % Eos % (Auto) (2-4) % Baso % (Auto) (0-2) % Neut # (Auto) (7468-1783) /uL Lymph # (Auto) (8801-3962) /uL [place] # (Auto) (0-900) /uL Eos # (Auto) (0-450) /uL Baso # (Auto) (0-100) /uL PT (10.1-12.7) SECONDS INR (0.9-1.3) APTT (26.4-36.2) SECONDS Sodium (137-145) mmol/L Potassium (3.4-5.1) mmol/L Chloride (98-107) mmol/L Carbon Dioxide (22-32) mmol/L BUN (7-17) mg/dL Creatinine (0.52-1.04) mg/dL Estimated GFR (>60) mL/min BUN/Creatinine Ratio (6-22) Glucose (80-110) mg/dL Calcium (8.4-10.2) mg/dL Total Bilirubin (0.2-1.3) mg/dL AST (14-36) IU/L ALT (<35) IU/L Alkaline Phosphatase (38-126) U/L Total Creatine Kinase (30-135) U/L CK-MB (CK-2) CK-MB (CK-2) Rel Index Troponin I < 0.012 (0.01-0.034) ng/mL NT-Pro-B Natriuret Pep (<125) pg/mL Total Protein (6.3-8.2) g/dL Albumin (3.5-5.0) g/dL Globulin (1.7-4.1) g/dL Albumin/Globulin Ratio (1.0-2.8) Lipase (23-300) U/L SARS-CoV-2 (PCR) Negative (Negative) Imaging Data Chest x-ray: Radiologist's Impression: [address] [address] XRay Report Signed Patient: Sharon Mars MR#: [id number] : 1950 Acct:[id number] Age/Sex: 71 / F Date of Service: 09/12/21 Loc: ED Accession Number: [id number] ?? Procedure: XR chest 1V Ordering Provider: Keely Pompa D.O. PROCEDURE:? XR CHEST 1V ? INDICATIONS:? chest pain ? TECHNIQUE:? One view of the chest was acquired.? ? COMPARISON:? [facility], , CHEST 2 VIEW, 09/05/2014, 10:45. ? FINDINGS:? ? Surgical changes and devices:? None.? ? Lungs and pleura:? Lungs are clear.? No pleural effusions or pneumothorax.? ? Mediastinum:? Heart size is within normal limits for technique.? ? Bones and chest wall:? There is irregularity of the right 5th and 6th ribs laterally compatible with sequelae of prior fractures.? Overlying soft tissues appear unremarkable. ? ? IMPRESSION:? ? 1.? No acute cardiopulmonary disease. ? ? Dictated by: Jonathan Jain M.D. on 09/12/2021 at 1:47 ? ? Approved by: Jonathan Jain M.D. on 09/12/2021 at 1:49 ECG Data Attestation: I personally reviewed and interpreted this ECG as follows: Prior ECG tracings: available for review Interpretation: Sinus bradycardia, rate of 58 NE 176 QRS 86 and QTC of 412. T-wave inverted in lead 3. No elevation. Nonspecific change. Patient has prior EKG from 11/04/2020 with nonspecific change but has similar changes lead 3 from December 24, 2015 EKG. EKG 2., shows sinus bradycardia rate of 55, NE 148 QRS 82 and QTC of 422. Patient has inverted T-wave in lead 3 which appears similar to priors. V3-V4 similar. MDM Narrative Medical decision making narrative: This is a 71-year-old female with multiple risk factors for cardiac cause of chest pain. Patient developed chest pain which she has not had in the past with radiation, shortness of breath and some nausea. No acute EKG changes initially, labs show no acute changes, patient has some nonspecific change that appears similar to prior EKGs but not consistently. Patient's chest pain resolved with nitro. Chest x-ray was negative discussed with her primary care service to keep for for chest pain observation and stress testing. Patient's blood pressure continued to elevate again and nitropaste was placed. Patient case discussed with primary care service who kindly accepts for observation for chest pain versus hypertensive urgency. Discharge Plan Departure Patient Disposition: Admitted as Observation Clinical Impression: Chest pain Admit Date/Time: 09/12/21 05:29 Admit Provider: Marielena Rust
[2021-09-12 01:31] LABS: Add Manual Diff / Slide Review NO; Basophils Absolute Auto 0 /uL (0-100); Basophils Percent Auto 0.4 % (0-2); Eosinophils Absolute Auto 300 /uL (0-450); Eosinophils Percent Auto 4.8 % (2-4); Hematocrit 38.4 % (36-46); Hemoglobin 13.4 g/dL (12.0-16.0); Lymphocytes Absolute Auto 1300 /uL (1100-4500); Lymphocytes Percent Auto 22.1 % (25-40); Mean Corpuscular HGB Conc 34.8 % (30-36); Mean Corpuscular Hemoglobin 31.3 PG (26-34); Mean Corpuscular Volume 89.8 fL (80-100); Monocytes Absolute Auto 500 /uL (0-900); Monocytes Percent Auto 9.6 % (3-14); Neutrophils Absolute Auto 3600 /uL (1500-7000); Neutrophils Percent Auto 63.1 % (50-75); Platelet Count 168 X10^3/uL (150-400); Red Blood Cell Count 4.27 X10^6/uL (4.0-5.2); Red Cell Distribution Width 13.7 % (11.6-14.8); White Blood Cell Count 5.7 X10^3/uL (4.5-11.0)
[2021-09-12] MEDS: SODIUM CHLORIDE 0.9% 1,000 ML 150 ML IV (01:34)
[2021-09-12] MEDS: ASPIRIN 81 MG CHEW TAB 243 MG PO (01:34)
[2021-09-12 01:39] LABS: INR 1.1 (0.9-1.3); Prothrombin Time 12.7 SECONDS (10.1-12.7)
[2021-09-12 01:41] LABS: PTT Partial Thromboplastin Tim 31 SECONDS (26.4-36.2)
[2021-09-12 01:42] LABS: Alanine Aminotransferase 23 IU/L (<35); Albumin Globulin Ratio 1.6 (1.0-2.8); Alkaline Phosphatase 82 U/L (38-126); Aspartate Aminotransferase 25 IU/L (14-36); BUN Creatinine Ratio 24.1 (6-22); Bilirubin Total 0.8 mg/dL (0.2-1.3); Blood Urea Nitrogen 14 mg/dL (7-17); Calcium 8.8 mg/dL (8.4-10.2); Carbon Dioxide 24 mmol/L (22-32); Chloride 104 mmol/L (98-107); Creatine Kinase 57 U/L (30-135); Estimated Glomerular Filt Rate > 60 mL/min (>60); Globulin 2.5 g/dL (1.7-4.1); Glucose 115 mg/dL (80-110); HEMOLYSIS < 15 (0-50); Lipase 192 U/L (23-300); Potassium 3.5 mmol/L (3.4-5.1); Sodium 135 mmol/L (137-145); Total Protein 6.5 g/dL (6.3-8.2)
[2021-09-12 01:54] LABS: NT-proBNP (BNP-Adult 18+) 390 pg/mL (<125); Troponin I < 0.012 ng/mL (0.01-0.034)
[2021-09-12] MEDS: NITROGLYCERIN 0.4 MG SL TAB SL (02:00)
[2021-09-12 02:45] LABS: COVID19 -Nasal RAPID Negative (Negative)
[2021-09-12 04:03] LABS: Troponin I < 0.012 ng/mL (0.01-0.034)
[2021-09-12] MEDS: NITROGLYCERIN OINT 1 INCH/GM OINT...G. 0.5 INCH TOP (05:40)
--- NOTE | 2021-09-12 09:43 | PM.HP.1 ---
History of Present Illness History of Present Illness Date Patient Seen: 09/12/21 Time Patient Seen: 09:44 Date of Onset of Symptoms: 09/11/21 Chief complaint: CHEST PAINS Narrative: Patient is a 71-year-old female well known to me with history of hypertension who presents with chest pain. Parent was she was in her usual state of health had a long walk yesterday and then ate [place] food and was feeling fine until she went to sleep or with getting ready for bed last night and developed chest pain left-sided no radiation. She did have some nausea diaphoresis but no short of breath. Pain was described as being a combination of pressure and sharp. Nothing seemed to make it better worse. Was coming in waves. She did not know at that time that her blood pressure was elevated. She tried different things at home did seem to help then got worried and was brought to the emergency room. In the emergency room she was found to have significantly elevated blood pressure and was given a nitro and she feels like her pain completely resolved. Patient otherwise seems to be have healing well. Her blood pressure elevated a little bit last week but has otherwise been stable. She has had no side effect to her medicine. She has been taking them consistently. No other significant change or complaint. Patient has no cardiac history. Has not been on a treadmill. Has never had an echo. Patient History Medical History Cataract (lens) fragments in eye following cataract surgery, right eye Detached retina, right Eczema History of colon polyps History of pneumonia Hyperlipidemia Psoriasis Skin cancer Surgical History History of colonoscopy S/P YAG capsulotomy, right Family & Social History Social History: household members spouse Prior Living Arrangements House Safety & Behavioral: Feels Safe in Current Yes Environment Been Physically Hurt or No Threatened By a Person Tobacco & Substance use: Smoking Status Former smoker alcohol intake frequency 0-2 drinks per day Substance Use Type does not use Meds Home Medications and Allergies Home Medications Medication Instructions Recorded Confirmed Type CHOLECALCIFEROL (VITAMIN D) 2,000 units PO QDAY #0 12/24/12 11/04/20 History LEVOTHYROXINE SODIUM (LEVOTHROID) 0.075 mg PO QDAY #0 12/24/12 09/12/21 History metoprolol tartrate 50 mg tablet 50 mg PO BID #0 12/24/12 09/12/21 History multivitamin (Multiple Vitamins) 2 tab PO QDAY #0 12/26/15 11/04/20 History calcium carbonate 400 mg calcium 400 mg PO PRN PRN 12/03/18 11/04/20 History (1,000 mg) chewable tablet (Tums Ultra) atorvastatin 10 mg tablet 10 mg PO BEDTIME 11/04/20 09/12/21 History chlorhexidine gluconate 0.12 % 0.5 ea PO BEDTIME 11/04/20 09/12/21 History mouthwash fluoride (sodium) 1.1 % dental 1 applic PO BID 11/04/20 11/04/20 History paste (PreviDent 5000 Booster Plus) tramadol 50 mg tablet 50 mg PO Q6H PRN 11/04/20 11/04/20 History losartan 50 mg tablet 100 mg PO DAILY #90 tab 11/07/20 09/12/21 Rx Allergies Allergy/AdvReac Type Severity Reaction Status Date / Time codeine [CODEINE] AdvReac Intermediate VOILENTLY Verified 10/28/20 14:01 NAUSEATED hydrocodone [HYDROCODONE] AdvReac Intermediate nausea/vomi Verified 10/28/20 14:01 ting Review of Systems Review of Systems Narrative: see history and physical all negative except as listed Exam Vital Signs (past 8 hours): - 09/12/21 02:00 09/12/21 02:01 09/12/21 02:05 Temperature Pulse Rate 57 L 57 L 69 Respiratory Rate 19 22 Blood Pressure 162/86 H 162/86 H 119/65 Pulse Oximetry 96 96 95 09/12/21 02:10 09/12/21 02:15 09/12/21 02:21 Temperature Pulse Rate 61 59 L 58 L Respiratory Rate 27 H Blood Pressure 119/70 134/65 159/70 H Pulse Oximetry 94 94 95 09/12/21 02:25 09/12/21 02:30 09/12/21 02:35 Temperature Pulse Rate 55 L 57 L 53 L Respiratory Rate Blood Pressure 153/71 H 157/72 H 141/69 H Pulse Oximetry 95 95 95 09/12/21 02:40 09/12/21 02:50 09/12/21 03:00 Temperature Pulse Rate 55 L 55 L Respiratory Rate 22 21 Blood Pressure 160/74 H 168/85 H 149/77 H Pulse Oximetry 95 96 96 09/12/21 03:30 09/12/21 04:00 09/12/21 04:01 Temperature Pulse Rate 53 L 51 L 51 L Respiratory Rate 25 H 21 20 Blood Pressure 168/79 H 163/77 H Pulse Oximetry 95 95 96 09/12/21 04:30 09/12/21 04:31 09/12/21 05:00 Temperature Pulse Rate 58 L 56 L 53 L Respiratory Rate 24 24 Blood Pressure 186/89 H 156/117 H Pulse Oximetry 96 95 96 09/12/21 05:30 09/12/21 05:31 09/12/21 06:14 Temperature Pulse Rate 48 L 47 L 87 Respiratory Rate 18 18 Blood Pressure 185/81 H Pulse Oximetry 95 96 09/12/21 06:15 09/12/21 06:17 09/12/21 08:33 Temperature 98.4 F 98.4 F Pulse Rate 56 L 56 L 54 L Respiratory Rate 16 21 14 Blood Pressure 186/92 H 186/92 H 183/88 H Pulse Oximetry 97 96 Oxygen Delivery Method Room Air Oxygen Flow Rate 0 Narrative Exam Narrative: alert interactive appropriate smiling female in no acute distress HEENT exam mucous membranes moist neck supple without adenopathy lungs are clear. Heart regular rate and rhythm. Abdomen is soft positive bowel sounds nontender extremities without cyanosis clubbing edema. Neurologic exam shows cranial nerves 2-12 are intact motor is 5/5 reflexes 2+ and symmetric. Objective ECG Impression: EKG shows nonspecific changes really very consistent with no exchange consultant 2015 EKG Labs Result Diagrams: 09/12/21 01:20 09/12/21 01:20 Labs: Laboratory Results - last 24 hr 09/12/21 09/12/21 09/12/21 01:20 01:20 01:20 WBC 5.7 RBC 4.27 Hgb 13.4 Hct 38.4 MCV 89.8 MCH 31.3 MCHC 34.8 RDW 13.7 Plt Count 168 Neut % (Auto) 63.1 Lymph % (Auto) 22.1 L [place] % (Auto) 9.6 Eos % (Auto) 4.8 H Baso % (Auto) 0.4 Neut # (Auto) 3600 Lymph # (Auto) 1300 [place] # (Auto) 500 Eos # (Auto) 300 Baso # (Auto) 0 PT 12.7 INR 1.1 APTT 31 Sodium 135 L Potassium 3.5 Chloride 104 Carbon Dioxide 24 BUN 14 Creatinine 0.58 Estimated GFR > 60 BUN/Creatinine Ratio 24.1 H Glucose 115 H Calcium 8.8 Total Bilirubin 0.8 AST 25 ALT 23 Alkaline Phosphatase 82 Total Creatine Kinase 57 CK-MB (CK-2) TNP CK-MB (CK-2) Rel Index TNP Troponin I < 0.012 NT-Pro-B Natriuret Pep 390 H Total Protein 6.5 Albumin 4.0 Globulin 2.5 Albumin/Globulin Ratio 1.6 Lipase 192 SARS-CoV-2 (PCR) 09/12/21 09/12/21 02:20 03:30 WBC RBC Hgb Hct MCV MCH MCHC RDW Plt Count Neut % (Auto) Lymph % (Auto) [place] % (Auto) Eos % (Auto) Baso % (Auto) Neut # (Auto) Lymph # (Auto) [place] # (Auto) Eos # (Auto) Baso # (Auto) PT INR APTT Sodium Potassium Chloride Carbon Dioxide BUN Creatinine Estimated GFR BUN/Creatinine Ratio Glucose Calcium Total Bilirubin AST ALT Alkaline Phosphatase Total Creatine Kinase CK-MB (CK-2) CK-MB (CK-2) Rel Index Troponin I < 0.012 NT-Pro-B Natriuret Pep Total Protein Albumin Globulin Albumin/Globulin Ratio Lipase SARS-CoV-2 (PCR) Negative Assessment & Plan Assessment & Plan narrative: chest pain. certainly concerning for Cardiac troponins negative x2. Will trend through the rest of the day. May be related to her elevated blood pressure but have not had on treadmill. Patient does have a mildly elevated BNP and has not had echo will obtain thallium treadmill and echo. Will trend troponin see the day. Will adjust and try to control blood pressure and see how she does hopefully discharge tomorrow. Hypertension. Poorly controlled. Will restart usual medicines. Will obtain echo. Will add Cardizem short-acting and switch to long-acting if she tolerates it. No other changes. I do not think we have to workup for feel or renal insufficiency but will see what happens. She understands we discussed all this. Hypothyroidism. Continue current medicines. No change. Hyperlipidemia. Will continue on a atorvastatin. Code status full. DVT prophylaxis Lovenox and SCDs. Disposition. Hope we will continue to in trend negative hope we can get treadmill set up tomorrow and discharge after. Depending on blood pressure. 35 minutes spent with patient reviewing documentation and dictating and orders Time Spent With Patient Critical Care time: I spent a total of [] minutes of critical care time on this patient's care today; this time is exclusive of procedural time.
--- NOTE | 2021-09-12 09:52 | DI.ECHO.S_ITS ---
[facility] +---------+ [facility] +---------+ : : [address] : : : : [id number] : : : : Phone: [phone] Echocardiogram Report + + :Name: MARSHA ROSAS Study Date: 09/12/2021 Height: 65 in : :[facility] ReadingLocation: Weight: 162 lb : : Gender: Female BSA: 1.8 m2 : :: 1950 Age: 71 yrs BP: 183/88 mmHg: :Reason For Study: HYPERTENSION : :Ordering Physician: DENISE, : :VANITA Performed By: Destiney Rosado : :Referring: VANITA WALKER : + + Interpretation Summary The ejection fraction is estimated to be 60-65%. There is mild concentric left ventricular hypertrophy. There is mild mitral regurgitation. There is mild tricuspid regurgitation. Procedure: A two-dimensional transthoracic echocardiogram with color flow and Doppler was performed. The study quality was technically adequate. There is no prior echocardiogram noted for this patient. The patient was in sinus bradycardia with heart rates between 47-54 bpm during the exam. Left Ventricle: The left ventricle is normal in size. There is mild concentric left ventricular hypertrophy. The ejection fraction is estimated to be 60-65%. Left ventricular wall motion is normal. Right Ventricle: The right ventricle is normal in size and function. Atria: The left atrium is moderately dilated. Right atrial size is normal. There is no Doppler evidence for an interatrial shunt. Mitral Valve: The mitral valve leaflets appear borderline thickened, but open well. There is mild mitral annular calcification. There is mild mitral regurgitation. Aortic Valve: The aortic valve is trileaflet. The aortic valve opens well. There is no aortic valve stenosis. There is trace aortic regurgitation. Tricuspid Valve: The tricuspid valve is normal in structure and function. There is mild tricuspid regurgitation. The right ventricular systolic pressure is estimated to be at least 27 mmHg based on an estimated right atrial pressure of 3 mm Hg. Pulmonic Valve: The pulmonic valve leaflets are thin and pliable; valve motion is normal. There is no pulmonic valvular regurgitation. Great Vessels: The aortic root is normal size. The dimensions of the ascending aorta are normal. The IVC is of normal diameter and collapses greater than 50% with a sniff. This suggests a low right atrial pressure of 3 mm Hg. Pericardium/ Pleura There is no pericardial effusion. There is no pleural effusion. MMode/2D Measurements & Calculations LVIDd: 4.3 cm LVOT diam: 2.0 cm LVIDs: 3.1 cm Ao root diam: 3.4 cm FS: 28.9 % asc Aorta Diam: 3.4 cm IVSd: 1.1 cm Ao Arch Diam (Prox Trans): 1.7 cm LVPWd: 0.84 cm LV hicks. diameter/BSA (cm/m^2): 2.4 LV sys. diameter/BSA (cm/m^2): 1.7 LA A2 area: 23.9 cm2 RA long axis: 5.0 cm LA A4 area: 20.4 cm2 RA area: 16.1 cm2 LA length (vol): 5.2 cm RA vol: 44.2 ml LA vol: 79.9 ml RA : 24.4 ml/m2 LA vol index: 44.2 ml/m2 IVC diam: 1.8 cm RVD1 (basal): 3.3 cm TAPSE: 2.0 cm Doppler Measurements & Calculations Ao V2 max: 123.1 cm/sec LVOT Max Gurdeep: 91.7 cm/sec Ao V2 mean: 88.4 cm/sec LV V1 max P.4 mmHg Ao max P.1 mmHg LV V1 VTI: 22.8 cm Ao mean P.4 mmHg IRINA(I,D): 2.2 cm2 Ao V2 VTI: 32.0 cm IRINA(V,D): 2.3 cm2 sev ratio: 0.71 IRINA indexed to BSA (cm^2/m^2): 1.2 MV E max gurdeep: 79.1 cm/sec TR max gurdeep: 247.1 cm/sec MV A max gurdeep: 86.3 cm/sec TR max P.4 mmHg MV E/A: 0.92 PA V2 max: 65.2 cm/sec Med Peak E' Gurdeep: 4.8 cm/sec PA V2 mean: 48.3 cm/sec E/E' med: 16.6 PA mean P.0 mmHg Lat Peak E' Gurdeep: 6.3 cm/sec PA pr(Accel): 29.3 mmHg E/E' lat: 12.6 E/e' average: 14.6 MV dec time: 0.19 sec SV(LVOT): 70.6 ml Reading Physician:12:26 PM
[2021-09-12] MEDS: METOPROLOL IR 50 MG TABLET PO (10:47)
[2021-09-12] MEDS: LOSARTAN 50 MG TABLET 100 MG PO (10:47)
[2021-09-12] MEDS: ENOXAPARIN 40 MG/0.4 ML SYRINGE SUBCUT (10:48)
[2021-09-12] MEDS: ASPIRIN EC 81 MG TABLET PO (10:48)
[2021-09-12 11:16] LABS: Troponin I < 0.012 ng/mL (0.01-0.034)
[2021-09-12] MEDS: dilTIAZem 30 MG TABLET PO (12:21)
--- NOTE | 2021-09-12 13:49 | CM.DANOTE ---
Addendum entered by BAO Kowalski 09/12/21 15:23: ADD: Per RN, stress test not available for 5 days and pt has had a few neg trops so far and therefore MD likely to d/c pt home tonight after clinic with outpt follow up. BF Original Note: Patient is a 71 yo female who was admitted on 09/12/21 today for Chest Pain. Pt has [facility] and [employer] for insurance and her PCP is Dr. Cyrus Emmanuel. EMR was reviewed. Per , pt with a hx of uncontrolled hypertension and admitted for Chest Pain r/o with Echo and Stress Test and possible d/c home tomorrow pending results. SW met bedside with pt and spouse and explained role and they confirm they live in [facility] and are active and independent at baseline and drives and pt does not use DME to ambulate. Pt walks daily and denies any hx of HH or SNF and states her spouse is her DPOA and their local supportive Dtr as backup. Pt and spouse state they have had recent stress as their youngest Dtr who lives in [place] by [place] was recently dx with breast cancer and just had surgical intervention but has been recovering well but they were upset that they were not able to be present with her in [place] due to their diabetic dog at home who needs insulin shots twice a day and we didn't have anyone that the dog is willing to allow them to help. But spouse and pt are feeling good about their Dtr's large support group in [place] helping her. Pt and spouse do not anticipate any needs at d/c and preference is to return home when medically stable. No PT orders as pt is independent in room. Plan: SW to follow in the AM for Echo and stress test results towards confirming safe plan of d/c home with spouse and any further identified discharge planning needs. BAO Kowalski Discharge Planning/Care Management CM Discharge Assessment Start: 09/12/21 13:48 Freq: Status: Active Protocol: Document 09/12/21 13:48 BF (Rec: 09/12/21 13:49 [id number]) Discharge Planning Assessment Assigned Occ Med Physician BAO [place] DPOA/Assigned Designee Name spouse Ayaan Contact Information [phone] Advance Directives? Yes Advance Directives on File No History Provided By Patient,Significant Other, Medical Record Has Patient been admitted in last 30 No days? Prior Living Arrangements House Household Members spouse Type of transporation used prior to Drives own vehicle admit Independent with ADL's Yes Is patient alert and oriented? Yes Caregiver for Another No Barriers to Discharge No Discharge Plan Home Transportation Arrangement Spouse Referrals Initiated None needed Additional Comment Pending Echo and Stress Test Whiteboard Updated in Patient Room with Yes name and ext. # of Occ Med Physician Review Status In Process Please Provide Date Initial DC 09/12/21 Assessment Was Performed Next Review Type Continued Stay Review
--- NOTE | 2021-09-12 16:48 | P.DS_ITS ---
History of Present Illness History of Present Illness Chief complaint: CHEST PAINS Narrative: Patient is a 71-year-old female well known to me with history of hypertension who presents with chest pain. Parent was she was in her usual state of health had a long walk yesterday and then ate Spanish food and was feeling fine until she went to sleep or with getting ready for bed last night and developed chest pain left-sided no radiation. She did have some nausea diaphoresis but no short of breath. Pain was described as being a combination of pressure and sharp. Nothing seemed to make it better worse. Was coming in waves. She did not know at that time that her blood pressure was elevated. She tried different things at home did seem to help then got worried and was brought to the emergency room. In the emergency room she was found to have significantly elevated blood pressure and was given a nitro and she feels like her pain completely resolved. Patient otherwise seems to be have healing well. Her blood pressure elevated a little bit last week but has otherwise been stable. She has had no side effect to her medicine. She has been taking them consistently. No other significant change or complaint. Patient has no cardiac history. Has not been on a treadmill. Has never had an echo. Discharge Providers Provider Date of admission: 09/12/21 05:29 Discharge Date: 09/12/21 Primary care physician: Cyrus Sosa MD Discharge provider: Cyrus Sosa MD Summary Hospital Course Discharge Diagnosis: Chest pain Hypertension Hypothyroidism Hyperlipidemia Hospital Course: chest pain. Patient had negative EKG negative troponins. Had no recurrence of pain after 1 nitro was given emergency room. Patient had nitro paste placed and was roof moved on the morning of her presentation. She had no further discom fort was feeling well. Echo showed no significant abnormality. Three troponins were negative in a row. Otherwise is feeling well. Treadmill not able to be done for some time. Discussed with patient. I believe that it might be cardiac related but I think she stable is not an unstable angina and is something that we can treat her blood pressure better and get outpatient evaluation. She is comfortable with that. Will discharge to home. Follow from there. Hypertension. Still not adequately controlled but better. May have been the reason for chest pain. do not believe there is any other issue going on. Will go to usual meds plus Cardizem CD 120 she seems to be tolerating the 30s quite well and start that tomorrow. Follow-up with me later this week. Call if any problems discussed side effects. Hypothyroidism. Stable. No change in medication Hyperlipidemia. Stable on a atorvastatin no change. Status at Discharge Cognitive/behavioral status at discharge: at baseline, oriented Functional status at discharge: independent ambulation Overall status at discharge: patient is progressing back to baseline Exam Vital Signs (past 8 hours): - 09/12/21 09:00 09/12/21 09:30 09/12/21 10:00 Temperature Pulse Rate 65 56 L 49 L Respiratory Rate 35 H 21 18 Blood Pressure Pulse Oximetry 09/12/21 10:30 09/12/21 10:47 09/12/21 11:00 Temperature Pulse Rate 54 L 54 L 50 L Respiratory Rate 21 19 Blood Pressure 183/88 H Pulse Oximetry 09/12/21 11:30 09/12/21 12:00 09/12/21 12:14 Temperature Pulse Rate 56 L 48 L 56 L Respiratory Rate 31 H 15 23 Blood Pressure 167/89 H Pulse Oximetry 95 09/12/21 12:21 09/12/21 12:30 09/12/21 13:43 Temperature 98.3 F Pulse Rate 63 59 L 53 L Respiratory Rate 34 H 23 Blood Pressure 167/89 H 167/89 H Pulse Oximetry 97 Oxygen Delivery Method Room Air Oxygen Flow Rate 0 Narrative Exam Narrative: Alert female smiling interactive reading her book in no acute distress Lungs are clear heart regular rate and rhythm extremities without edema Objective Labs Result Diagrams: 09/12/21 01:20 09/12/21 01:20 Labs: Laboratory Results - last 24 hr 09/12/21 09/12/21 09/12/21 01:20 01:20 01:20 WBC 5.7 RBC 4.27 Hgb 13.4 Hct 38.4 MCV 89.8 MCH 31.3 MCHC 34.8 RDW 13.7 Plt Count 168 Neut % (Auto) 63.1 Lymph % (Auto) 22.1 L [place] % (Auto) 9.6 Eos % (Auto) 4.8 H Baso % (Auto) 0.4 Neut # (Auto) 3600 Lymph # (Auto) 1300 [place] # (Auto) 500 Eos # (Auto) 300 Baso # (Auto) 0 PT 12.7 INR 1.1 APTT 31 Sodium 135 L Potassium 3.5 Chloride 104 Carbon Dioxide 24 BUN 14 Creatinine 0.58 Estimated GFR > 60 BUN/Creatinine Ratio 24.1 H Glucose 115 H Calcium 8.8 Total Bilirubin 0.8 AST 25 ALT 23 Alkaline Phosphatase 82 Total Creatine Kinase 57 CK-MB (CK-2) TNP CK-MB (CK-2) Rel Index TNP Troponin I < 0.012 NT-Pro-B Natriuret Pep 390 H Total Protein 6.5 Albumin 4.0 Globulin 2.5 Albumin/Globulin Ratio 1.6 Lipase 192 SARS-CoV-2 (PCR) 09/12/21 09/12/21 09/12/21 02:20 03:30 10:27 WBC RBC Hgb Hct MCV MCH MCHC RDW Plt Count Neut % (Auto) Lymph % (Auto) [place] % (Auto) Eos % (Auto) Baso % (Auto) Neut # (Auto) Lymph # (Auto) [place] # (Auto) Eos # (Auto) Baso # (Auto) PT INR APTT Sodium Potassium Chloride Carbon Dioxide BUN Creatinine Estimated GFR BUN/Creatinine Ratio Glucose Calcium Total Bilirubin AST ALT Alkaline Phosphatase Total Creatine Kinase CK-MB (CK-2) CK-MB (CK-2) Rel Index Troponin I < 0.012 < 0.012 NT-Pro-B Natriuret Pep Total Protein Albumin Globulin Albumin/Globulin Ratio Lipase SARS-CoV-2 (PCR) Negative [facility] Medical History Cataract (lens) fragments in eye following cataract surgery, right eye Detached retina, right Eczema History of colon polyps History of pneumonia Hyperlipidemia Psoriasis Skin cancer Surgical History History of colonoscopy S/P YAG capsulotomy, right Social History household members: spouse Smoking Status: Former smoker Discharge Assessment & Plan Assessment and Plan Assessment: see above Plan of Treatment: discharge to home with close follow up Discharge Plan Discharge Plan Patient Disposition: Home Discharge orders & Medications Prescriptions: New diltiazem HCl [Cardizem CD] 120 mg capsule,extended release 24hr 120 mg PO DAILY Qty: 30 3RF Continued LEVOTHYROXINE SODIUM (LEVOTHROID) 0.075 mg PO QDAY Qty: 0 0RF metoprolol tartrate 50 MG tablet 50 mg PO BID Qty: 0 0RF CHOLECALCIFEROL (VITAMIN D) 2,000 units PO QDAY Qty: 0 0RF multivitamin [Multiple Vitamins] 1 EACH tablet 2 tab PO QDAY Qty: 0 0RF Label Comments: gummy vitamin atorvastatin 10 mg tablet 10 mg PO BEDTIME 0RF Label Comments: TAKE 1 TABLET BY MOUTH DAILY FOR CHOLESTEROL chlorhexidine gluconate 0.12 % mouthwash 0.5 ea PO BEDTIME 0RF Label Comments: SWISH WITH 1/2 OZ FOR 30 SECONDS BEFORE BRUCHING EACH NIGHT. USE FOR 1WEEK EACH MONTH ONLY. Rx Instructions: 0.5 ounce for 30 sec at bedtime fluoride (sodium) [PreviDent 5000 Booster Plus] 1.1 % paste 1 applic PO BID 0RF Label Comments: BRUSH WITH PEA SIZED AMOUNT TWICE DAILY Rx Instructions: Bursh with pea sized amount twice daily losartan 50 mg Tablet 100 mg PO DAILY Qty: 90 1RF calcium carbonate [Tums Ultra] 400 mg calcium (1,000 mg) Tablet,Chewable 400 mg PO PRN PRN (Reason: Heartburn) 0RF Follow up/Referrals: Cyrus Sosa MD [Primary Care Provider] - 09/17/21 9:00 am (09/17 @ 9:00 w/dr sosa please arrive 15 min prior to scheduled appointment time ) Discharge Health Status Multidrug resistant organism: No MDRO Diet/Activity/Treatments Diet: Low-sodium Skin/Wound/Dressing Care Report to your healthcare provider any signs of infection, such as:: increased pain Visit Report/Discharge Packet Instructions: Essential Hypertension Discharge Data Primary Care Provider: Cyrus Sosa Attending Provider: Marielena Rust
[2021-09-12 17:02] LABS: Troponin I < 0.012 ng/mL (0.01-0.034)
== END 2021-09-12 17:12 | disposition home or self-care (01) ==
LOC: ED 05:27 → AC 05:29 → ICU 05:53
PROVIDERS: Admitting Provider Student in an Organized Health Care Education/Training Program; Emergency Provider Emergency Medicine; PCP Family Medicine; Referring Provider Emergency Medicine; Visit Provider Student in an Organized Health Care Education/Training Program
DX: R07.9 Chest pain, unspecified (principal); I10 Essential (primary) hypertension; E78.5 Hyperlipidemia, unspecified; Z79.82 Long term (current) use of aspirin; E03.9 Hypothyroidism, unspecified; Z20.822 Contact with and (suspected) exposure to COVID-19
CPT/HCPCS: 36415; 71045; 80053; 82550; 83690; 83880; 84484; 85025; 85610; 85730; 87635; 93005; 93010; 93306; 96372; 99284; C9803; G0378; J1650

== ENCOUNTER → 2021-09-27 10:59 | Outpatient (CLI) | payer MEDICARE, SELFPAY ==
[2021-09-12 06:24] VITALS: BMI 27.1
[2021-09-27 12:35] LABS: COVID19 -Nasal RAPID Negative (Negative)
== END ==
PROVIDERS: PCP Family Medicine; Visit Provider Nurse Practitioner Family
DX: Z20.822 Contact with and (suspected) exposure to COVID-19 (principal)
CPT/HCPCS: 87635; C9803

== ENCOUNTER → 2021-09-30 10:36 | Outpatient (CLI) | payer MEDICARE, SELFPAY ==
[2021-09-12 06:24] VITALS: BMI 27.1
--- NOTE | 2021-09-30 11:59 | PM.TREADMILL ---
Cardiac Stress Test Report Referral & Results Date Patient Seen: 09/30/21 Time Patient Seen: 12:00 Requesting provider: Cyrus Emmanuel Indication: Essential hypertension Rest ECG: Sinus rhythm Procedure Note: Patient unable to keep up with treadmil. For safety reasons, test changed to Lexiscan After Lexiscan injection, had minimal dyspnea and no chest discomfort Hypertensive at baseline After Lexiscan injection, had no significant ST changes No ectopy Impression: Normal Lexiscan stress test Nuclear images pending Please note: Actual ECG tracings can be found in the PACS system.
--- NOTE | 2021-10-02 05:45 | DI.NM.S_ITS ---
DATE OF SERVICE: PROCEDURE: Pharmacological perfusion study. INDICATION: Chest pain with underlying hypertension. RADIOPHARMACEUTICAL: 23.8 mCi technetium-99m Myoview IV was injected at stress and 13.1 mCi technetium-99m Myoview IV was injected at rest. CARDIAC STRESS: The patient underwent pharmacological perfusion study under the supervision of attending staff, as per standard IV Lexiscan protocol. The patient was unable to walk on treadmill. Baseline rhythm was sinus with some nonspecific ST-T changes. During Lexiscan, the patient remained having nonspecific ST-T changes. No significant arrhythmias seen. Baseline blood pressure 140/98 and maximum blood pressure 170/100 mmHg. No chest discomfort. RAW DATA: There was breast shadow seen. GATED STUDY: Resting left ventricular ejection fraction 75 percent and stress left ventricular ejection fraction 84 percent. Resting end-diastolic volume 68 mL. TID ratio 1.0, which is within normal limits. Lung/heart ratio 0.34, which is within normal limits. MYOCARDIAL PERFUSION SCAN: Please note, the patient does not have any stress prone images. Stress supine and resting supine images were compared to each other. There appears to be predominantly fixed, small size, mildly decreased perfusion of anterior wall without any reversible ischemia. CONCLUSION: The patient has predominantly fixed, small size anterior wall defect. However, there are no stress prone images. On raw data, significant breast shadow seen. On gated study, no wall motion abnormalities. Anterior wall is moving well. Most likely, this anterior wall defect is due to breast tissue attenuation artifact; however, one cannot rule out the possibility of a small size anterior wall myocardial infarction. In absence of reversible ischemia and preserved left ventricular function, overall low-risk myocardial perfusion scan. Correlate clinically. Sharon Mars - LEILANI/hari/APRIL doc#: [id number]/job#: [id number] dd: 10/01/2021 17:50:00 dt: 10/01/2021 20:08:00 DICTATING /COPIES TO: Newton Hernandez MD COPIES MNE: AMARI;
== END ==
PROVIDERS: PCP Family Medicine; Referring Provider Family Medicine; Visit Provider Family Medicine
DX: R07.9 Chest pain, unspecified (principal); I10 Essential (primary) hypertension
CPT/HCPCS: 78452; 93017; A9502; J2785

== ENCOUNTER → 2022-01-27 13:06 | Outpatient (CLI) | payer MEDICARE, SELFPAY ==
[2021-09-12 06:24] VITALS: BMI 27.1
--- NOTE | 2022-01-27 | DI.MG.S_ITS ---
BILATERAL DIGITAL SCREENING MAMMOGRAM 3D/2D WITH CAD: 01/27/2022 CLINICAL: Routine screening. Family history of breast cancer. Comparison is made to exams dated: 02/21/2021 mammogram, 02/13/2021 mammogram, 01/25/2021 mammogram, and 11/29/2019 mammogram - . There are scattered areas of fibroglandular density in both breasts (category b / 25%-50% glandular tissue). Current study was also evaluated with a Computer Aided Detection (CAD) system. No significant masses, calcifications, or other findings are seen in either breast. There has been no significant interval change. IMPRESSION: NEGATIVE There is no mammographic evidence of malignancy. A 1 year screening mammogram is recommended. Based on the Tyrer Cuzick model (a risk assessment model) the patient's lifetime risk is 4.2% and her 10 year risk is 3.8%. According to the ACR, ACS, and NCCN guidelines, an annual breast MRI exam along with mammogram is recommended if the patient's lifetime risk is 20% or greater. This exam was interpreted at Station ID: [id number]. NOTE: For mammograms, a report in lay terms will be sent to the patient. Approximately 15% of breast malignancies will not be visualized mammographically. In the management of a palpable breast mass, a negative mammogram must not discourage biopsy of a clinically suspicious lesion. Electronically Signed By: Eduardo Mccarthy M.D., jr/latricia:01/27/2022 15:15:38 letter sent: Normal Exam ACR BI-RADS Category 1: Negative 3341F
== END ==
PROVIDERS: PCP Family Medicine; Referring Provider Family Medicine; Visit Provider Family Medicine
DX: Z12.31 Encounter for screening mammogram for malignant neoplasm of breast (principal); Z80.3 Family history of malignant neoplasm of breast
CPT/HCPCS: 77063; 77067

== ENCOUNTER → 2022-02-24 15:10 | Outpatient (CLI) | payer MEDICARE, SELFPAY ==
[2021-09-12 06:24] VITALS: BMI 27.1
--- NOTE | 2022-02-24 15:11 | DI.RAD.S_ITS ---
PROCEDURE: XR DEXA AXIAL SKELETON INDICATIONS: Asymptomatic menopausal state COMPARISON: [facility], CR, XR DEXA AXIAL SKELETON, 11/29/2019, 12:58. FINDINGS: This blank DEXA report has been sent in error by the PACS system. The correct and complete report will be forthcoming in 1-2 days. Thank you for your patience and understanding. Dictated by: Eduardo Mccarthy M.D. on 02/24/2022 at 16:24 Approved by: Eduardo Mccarthy M.D. on 02/24/2022 at 16:25
== END ==
PROVIDERS: PCP Family Medicine; Referring Provider Family Medicine; Visit Provider Family Medicine
DX: Z78.0 Asymptomatic menopausal state (principal); Z13.820 Encounter for screening for osteoporosis
CPT/HCPCS: 77080

== ENCOUNTER → 2023-02-06 12:50 | Outpatient (CLI) | payer MEDICARE, SELFPAY ==
[2021-09-12 06:24] VITALS: BMI 27.1
--- NOTE | 2023-02-06 | DI.MG.S_ITS ---
BILATERAL DIGITAL SCREENING MAMMOGRAM 3D/2D WITH CAD: 02/06/2023 CLINICAL: Routine screening. Family history of breast cancer. Comparison is made to exams dated: 01/27/2022 mammogram, 01/25/2021 mammogram, 11/29/2019 mammogram, and 09/30/2018 mammogram - [facility]. There are scattered areas of fibroglandular density in both breasts (category b / 25%-50% glandular tissue). Current study was also evaluated with a Computer Aided Detection (CAD) system. No significant masses, calcifications, or other findings are seen in either breast. There has been no significant interval change. IMPRESSION: NEGATIVE There is no mammographic evidence of malignancy. A 1 year screening mammogram is recommended. Based on the Tyrer Cuzick model (a risk assessment model) the patient's lifetime risk is 3.9% and her 10 year risk is 3.9%. According to the ACR, ACS, and NCCN guidelines, an annual breast MRI exam along with mammogram is recommended if the patient's lifetime risk is 20% or greater. This exam was interpreted at Station ID: [id number]. NOTE: For mammograms, a report in lay terms will be sent to the patient. Approximately 15% of breast malignancies will not be visualized mammographically. In the management of a palpable breast mass, a negative mammogram must not discourage biopsy of a clinically suspicious lesion. Electronically Signed By: Ryder siddiqui/latricia:02/06/2023 16:27:37 letter sent: Normal Exam ACR BI-RADS Category 1: Negative 3341F
== END ==
PROVIDERS: PCP Family Medicine; Referring Provider Family Medicine; Visit Provider Family Medicine
DX: Z12.31 Encounter for screening mammogram for malignant neoplasm of breast (principal); Z80.3 Family history of malignant neoplasm of breast
CPT/HCPCS: 77063; 77067

== ENCOUNTER → 2024-02-09 14:01 | Outpatient (CLI) | payer MEDICARE, SELFPAY ==
[2021-09-12 06:24] VITALS: BMI 27.1
--- NOTE | 2024-02-09 14:03 | DI.MG.S_ITS ---
BILATERAL DIGITAL SCREENING MAMMOGRAM 3D/2D WITH CAD: 02/09/2024 CLINICAL: Routine screening. Family history of breast cancer. Comparison is made to exams dated: 02/06/2023 mammogram, 01/27/2022 mammogram, 02/21/2021 mammogram, 02/13/2021 mammogram, and 01/25/2021 mammogram - [facility]. There are scattered areas of fibroglandular density (category b / 25%-50% glandular tissue). Current study was also evaluated with a Computer Aided Detection (CAD) system. There are benign post operative findings in the left breast. No significant masses, calcifications, or other findings are seen in either breast. There has been no significant interval change. IMPRESSION: BENIGN There is no mammographic evidence of malignancy. A 1 year screening mammogram is recommended. Based on the Tyrer Cuzick model (a risk assessment model) the patient's lifetime risk is 3.6% and her 10 year risk is 0.0%. According to the ACR, ACS, and NCCN guidelines, an annual breast MRI exam along with mammogram is recommended if the patient's lifetime risk is 20% or greater. This exam was interpreted at Station ID: [id number]. NOTE: For mammograms, a report in lay terms will be sent to the patient. Approximately 15% of breast malignancies will not be visualized mammographically. In the management of a palpable breast mass, a negative mammogram must not discourage biopsy of a clinically suspicious lesion. Electronically Signed By: Mario neely/latricia:02/09/2024 15:24:42 letter sent: Normal Exam ACR BI-RADS Category 2: Benign
== END ==
PROVIDERS: PCP Family Medicine; Referring Provider Family Medicine; Visit Provider Family Medicine
DX: Z12.31 Encounter for screening mammogram for malignant neoplasm of breast (principal); Z80.3 Family history of malignant neoplasm of breast
CPT/HCPCS: 77063; 77067

== ENCOUNTER 2024-10-24 03:53 | Emergency (ER) | payer MEDICARE, SELFPAY ==
[2021-09-12 06:24] VITALS: BMI 27.1
[2024-10-24] VITALS (8 sets, daily range): BP systolic 147–189; BP diastolic 82–90; PULSE 68–82; RESP 16–26; TEMP 36.5–36.6; O2SAT 97–99; BMI 25.3
--- NOTE | 2024-10-24 03:52 | DI.CT.S_ITS ---
PROCEDURE: CT CHEST ABD PEL W CON INDICATIONS: AMS / unwitness fall TECHNIQUE: After the administration of intravenous contrast, 5 mm thick sections acquired from the lung apices to the symphysis. 5 mm coronal and sagittal reformats were performed, with additional 7 mm MIP reformats through the lungs. For radiation dose reduction, the following was used: automated exposure control, adjustment of mA and/or kV according to patient size. COMPARISON: None. FINDINGS: Image quality: Motion degraded Lungs and pleura: No pneumothorax or hemothorax. No pulmonary laceration or contusion. Scattered atelectasis is seen Mediastinum, heart, and esophagus: No acute aortic dissection. Mild calcified and noncalcified aortic plaque is seen. Coronary calcifications. Mild cardiomegaly. No definite mediastinal hematoma. No pathologic lymph nodes by size criteria. [id number] patulous appearance of the esophagus with gas and fluid. Chest wall and thyroid: Unremarkable. Lower neck is obscured partially by metallic artifact. Thoracic bones: Likely old right 5th rib fracture. Spondylotic changes of the thoracic spine. Left shoulder arthroplasty. Liver: Subcentimeter lesion at the dome, too small to characterize, usually a cyst. No hematoma or laceration Gallbladder and biliary system: Cholelithiasis and distension of the gallbladder. No biliary ductal dilation Pancreas: No ductal dilation Spleen: No hematoma or laceration Adrenals: No discrete nodules. Kidneys: No hematoma or laceration. Mild bilateral ureter ectasia and pelviectasis with bladder distention. No obstructing calcified stone. Vessels and lymph nodes: No abdominal aortic aneurysm. The main portal vein appears patent. No abdominal or pelvic lymphadenopathy by size criteria. Bowel and peritoneum: No acute small bowel obstruction. No hemoperitoneum identified. Colonic diverticulosis. Nondilated appendix Body wall: Unremarkable Pelvis: Bladder is distended. Reproductive organs are unremarkable on limited CT evaluation. Abdominal pelvic bones: Degenerative thoracolumbar and sacral changes. T12 and L1 height loss at the superior endplates, age-indeterminate. IMPRESSION: Motion degraded CT T12 and L1 superior endplate fractures are age-indeterminate and does not appear acute on CT. MRI could further evaluate if clinically necessary. Advanced osseous degenerative changes throughout the spine and other visualized joints. No solid organ laceration or hematoma. No pneumothorax or other acute thoracic traumatic abnormality identified. Cholelithiasis. No significant changes from the preliminary report. Dictated by: Mario Méndez M.D. on 10/24/2024 at 8:00 Approved by: Mario Méndez M.D. on 10/24/2024 at 8:07
--- NOTE | 2024-10-24 03:52 | ED.AMS ---
HPI - Altered Mental Status General Chief Complaint: Altered Mental Status Stated Complaint: hit head Time Seen by Provider: 10/24/24 04:26 History of Present Illness HPI narrative: Patient is a 74-year-old female with a past medical history of hyperlipidemia, hypertension, hypothyroidism, brought into the ED via EMS for evaluation of altered mental status. According to EMS patient had 2 unwitnessed falls, initially patient fell in the bathroom at around 10:00 p.m. according to medics has been states that she started acting weird after that, normally is A&O x4. At time of evaluation patient is moving all 4 extremities is aware to self but not to time and place. She is not complaining of any symptoms however additional ROS HPI is limited given patient's mental status change. Related Data Home Medications ?Medication ?Instructions ?Recorded ?Confirmed CHOLECALCIFEROL (VITAMIN D) 2,000 units PO QDAY ##0 12/24/12 09/12/21 LEVOTHYROXINE SODIUM (LEVOTHROID) 0.075 mg PO QDAY ##0 12/24/12 09/12/21 metoprolol tartrate 50 mg tablet 50 mg PO BID ##0 12/24/12 09/12/21 multivitamin (Multiple Vitamins 2 tab PO QDAY ##0 12/26/15 09/12/21 tablet) calcium carbonate (Tums Ultra) 400 mg PO PRN PRN Heartburn 12/03/18 09/12/21 atorvastatin 10 mg tablet 10 mg PO BEDTIME 11/04/20 09/12/21 chlorhexidine gluconate 0.12 % 0.5 ea PO BEDTIME 11/04/20 09/12/21 mouthwash fluoride (sodium) 1.1 % dental 1 applic PO BID 11/04/20 09/12/21 paste (PreviDent 5000 Booster Plus) Previous Rx's ?Medication ?Instructions ?Recorded losartan 50 mg tablet 100 mg (2 x 50 mg) PO DAILY #90 11/07/20 tabs diltiazem HCl 120 mg 120 mg PO DAILY #30 caps 09/12/21 capsule,extended release 24 hr (Cardizem CD) Allergies Allergy/AdvReac Type Severity Reaction Status Date / Time codeine (CODEINE) AdvReac Intermediate VOILENTLY Verified 10/28/20 14:01 NAUSEATED hydrocodone (HYDROCODONE) AdvReac Intermediate nausea/vomi Verified 10/28/20 14:01 ting Review of Systems Review of Systems ROS Unobtainable: Unobtainable due to mental status/LOC Patient History Medical History Cataract (lens) fragments in eye following cataract surgery, right eye Detached retina, right Eczema History of colon polyps History of pneumonia Hyperlipidemia Psoriasis Skin cancer Surgical History History of colonoscopy S/P YAG capsulotomy, right Social History household members: spouse alcohol intake frequency: 0-2 drinks per day Alcohol type: beer Exam Narrative Exam Narrative: General: Cooperative, well-developed, not in acute distress HEENT: Hematoma noted to the left posterior aspect scalp, but no overlying laceration abrasion or palpable step-offs PERRLA, normal sclera, eyelids normal Neck: Active full range of motion, atraumatic Chest: Normal to inspection, negative crepitus, no overlying erythema ecchymosis Respiratory: Normal respiratory effort, not in acute respiratory distress, clear to auscultation bilaterally negative cough, wheeze, tachypnea, rhonchi, rales Cardiology: Regular rate rhythm negative gallop, murmur, rubs GI/: No tenderness to palpation, soft, non rigid, normal to inspection, exam deferred MSK: Full active range of motion in all 4 extremities, atraumatic, no tenderness to palpation of any bony prominences Skin: No rashes or lesions noted Neuro: Alert to self only,, moves all 4 extremities spontaneously, cranial nerves intact, follows commands appropriately, however does appear confused Psych: Cooperative, negative suicidal or homicidal ideations Initial Vital Signs Initial Vital Signs: Vital Signs Temperature 97.8 F 10/24/24 03:53 Pulse Rate 68 10/24/24 03:53 Respiratory Rate 16 10/24/24 03:53 Blood Pressure 189/82 H 10/24/24 03:53 Pulse Oximetry 97 10/24/24 03:53 Oxygen Delivery Method Room Air 10/24/24 03:53 Course Orders Ordered: ED Orders 10/24/24 03:52 CT chest abd pel w con Stat Blood Culture Stat Complete Blood Count AUTO DIFF Stat Comprehensive Metabolic Panel Stat Ethanol (ETOH) Stat Lactate (Lactic Acid) Stat PTT Partial Thromboplastin Guillermo Stat Prothrombin Time INR Stat Troponin & CK Cardiac Panel Stat Urinalysis and Microscopic Stat Urine Drug Screen, Rapid Stat 10/24/24 03:53 EKG-12 Lead Stat 10/24/24 03:54 CT cervical spine wo con Stat CT head/brain wo con Stat Covid-19 + FLU A/B + RSV - PCR Stat Lipase Stat MAG [Magnesium] Stat NT-proBNP (BNP-Adult 18+) Stat 10/24/24 04:11 Type and Screen Stat Discontinued Medications Dexamethasone (Dexamethasone 10 Mg/Ml Vial) 10 mg IV NOW ONE Stop: 10/24/24 04:23 Last Admin: 10/24/24 04:46 Dose: 10 mg Levetiracetam 1,000 mg/ Sodium (Chloride) 110 mls @ 440 mls/hr IV NOW ONE Stop: 10/24/24 04:23 Last Admin: 10/24/24 04:41 Dose: 440 mls/hr Vital Signs Vital signs: Vital Signs - 8 hr 10/24/24 03:53 Temperature 97.8 F Pulse Rate 68 Respiratory Rate 16 Blood Pressure 189/82 H Pulse Oximetry 97 Oxygen Delivery Method Room Air MDM - Altered Mental Status Differential Diagnosis Differential diagnosis: Likely alcoholic intoxication, altered mental status, dementia, other and subarachnoid hemorrhage Lab Data 10/24/24 03:45 10/24/24 03:45 Labs: Lab Results 10/24/24 Range/Units 03:45 WBC 9.7 (4.5-11.0) X10^3/uL RBC 3.41 L (4.0-5.2) X10^6/uL Hgb 10.9 L (12.0-16.0) g/dL Hct 29.4 L (36-46) % MCV 86.2 (80-100) fL MCH 32.1 (26-34) PG MCHC 37.3 H (30-36) % RDW 13.6 (11.6-14.8) % Plt Count 236 (150-400) X10^3/uL Neut % (Auto) 87.8 H (50-75) % Lymph % (Auto) 5.3 L (25-40) % Barry % (Auto) 6.7 (3-14) % Eos % (Auto) 0.1 L (2-4) % Baso % (Auto) 0.1 (0-2) % Neut # (Auto) 8500 H (6426-5441) /uL Lymph # (Auto) 500 L (5067-1850) /uL Barry # (Auto) 600 (0-900) /uL Eos # (Auto) 0 (0-450) /uL Baso # (Auto) 0 (0-100) /uL PT 12.6 H (9.4-12.5) SECONDS INR 1.1 (0.9-1.3) APTT 26 (25.1-36.5) SECONDS Sodium 115 L* (137-145) mmol/L Potassium 2.7 L* (3.4-5.1) mmol/L Chloride 79 L (98-107) mmol/L Carbon Dioxide 27 (22-32) mmol/L BUN 21 H (7-17) mg/dL Creatinine 0.86 (0.52-1.04) mg/dL Estimated GFR > 60 (>60) mL/min BUN/Creatinine Ratio 24.4 H (6-22) Glucose 164 H (70-99) mg/dL Lactate 1.7 (0.7-2.1) mmol/L Calcium 9.2 (8.4-10.2) mg/dL Magnesium 1.8 (1.6-2.3) mg/dL Total Bilirubin 1.3 (0.2-1.3) mg/dL AST 48 H (14-36) IU/L ALT 28 (<35) IU/L Alkaline Phosphatase 57 (38-126) U/L Total Creatine Kinase 313 H (30-135) U/L Troponin I < 0.012 (0.01-0.034) ng/mL NT-Pro-B Natriuret Pep 352 (<450) pg/mL Total Protein 6.2 L (6.3-8.2) g/dL Albumin 4.2 (3.5-5.0) g/dL Globulin 2.0 (1.7-4.1) g/dL Albumin/Globulin Ratio 2.1 (1.0-2.8) Lipase 90 (23-300) U/L Ethyl Alcohol < 10 (<10) mg/dL Imaging Data CT scan - head: Radiologist's Impression: Preliminary read show an acute subdural hemorrhages along the falx measuring 5 mm and left cerebral subdural measuring up to 1.3 cm mass effect present with shift of midline structures of the right measuring 11 mm, acute blood products along the tentorium, left posterior parietal hematoma, CT - cervical spine: Radiologist's Impression: Preliminary read showing multilevel spondylitic changes of the cervical spine without acute traumatic injury CT chest abdomen pelvis: Radiologist's Impression: Preliminary read showing no pulmonary embolism aortic dissection or aneurysm, no acute fracture seen MDM Narrative Medical decision making narrative: 74-year-old female with a past medical history of hypertension hypothyroidism hyperlipidemia presenting from home via EMS for evaluation of altered mental status, according to medics they were called due to the fact that patient had an unwitnessed fall at around 10:00 p.m. on 10/23/2024 according to medics patient is normally A&O x4, however has been states that she has been acting ?weird since the fall and therefore decided call EMS. According to medics at time of evaluation patient confused but moving all 4 extremities. At time of evaluation by me patient without any focal deficits moving all 4 extremities she is alert to self only is able to follow commands but confused. Patient was in C-collar for precautions. Patient had lab work imaging EKG urinalysis performed here in the emergency department. 0412: Went down with patient to CT scan, there does appear to be a subdural hemorrhage noted on my interpretation of the CT scan, call placed out to [facility] for intracranial hemorrhage, did have a discussion with the who states would like patient to be transferred. Did obtain additional information from the , he states that the patient has not been eating or drinking normally over the past 4-5 days, states that they were supposed to get blood work this morning that was ordered by her primary care doctor. 0424: Received call by Radiology stating patient with acute subdural hemorrhage with midline shift of 11 mm, 10 mg Decadron 1 g Keppra ordered, awaiting call back from [facility] for transfer given subdural hemorrhage with midline shift. Also noted patient is severely hyponatremic at 115 and hypokalemic at 2.7. 0430: Discussed case with transfer center hot line at [facility], will call back once discussion with neurosurgery 0516: Discussed case with neurosurgeon Cori Almaraz, agrees patient should be transferred to [facility] ED. recommending SBP less than 160. 0523: Patient is has been updated in regards to transfer patient will be flown out he understands and agrees with this plan 0605: Transport here, patient re-evaluated SBP less than 160, no new changes to exam. Patient safe for transport to outside hospital at this time Critical Care Time Critical Care Time Critical Care Time: Yes Total Critical Care Time: 35 Attestation: Authorized and Performed by: Vitor Ball DO Total critical care time: Approximately [35] minutes Due to a high probability of clinically significant, life threatening deterioration, the patient required my highest level of preparedness to intervene emergently and I personally spent this critical care time directly and personally managing the patient. This critical care time included obtaining a history; examining the patient; pulse oximetry; ordering and review of studies; arranging urgent treatment with development of a management plan; evaluation of patient's response to treatment; frequent reassessment; and, discussions with other providers. This critical care time was performed to assess and manage the high probability of imminent, life-threatening deterioration that could result in multi-organ failure. It was exclusive of separately billable procedures and treating other patients and teaching time. Please see MDM section and the rest of the note for further information on patient assessment and treatment. Discharge Plan Departure Patient Disposition: [facility] Clinical Impression: Subdural hemorrhage, Acute hyponatremia, Acute hypokalemia Prescriptions: No Action LEVOTHYROXINE SODIUM (LEVOTHROID) 0.075 mg PO QDAY Qty: 0 metoprolol tartrate 50 MG tablet 50 mg PO BID Qty: 0 CHOLECALCIFEROL (VITAMIN D) 2,000 units PO QDAY Qty: 0 multivitamin [Multiple Vitamins] 1 EACH tablet 2 tab PO QDAY Qty: 0 Patient Comments: gummy vitamin atorvastatin 10 mg tablet 10 mg PO BEDTIME Patient Comments: TAKE 1 TABLET BY MOUTH DAILY FOR CHOLESTEROL chlorhexidine gluconate 0.12 % mouthwash 0.5 ea PO BEDTIME Patient Comments: SWISH WITH 1/2 OZ FOR 30 SECONDS BEFORE BRUCHING EACH NIGHT. USE FOR 1WEEK EACH MONTH ONLY. Rx Instructions: 0.5 ounce for 30 sec at bedtime fluoride (sodium) [PreviDent 5000 Booster Plus] 1.1 % paste 1 applic PO BID Patient Comments: BRUSH WITH PEA SIZED AMOUNT TWICE DAILY Rx Instructions: Bursh with pea sized amount twice daily losartan 50 mg Tablet 100 mg PO DAILY Qty: 90 1RF diltiazem HCl [Cardizem CD] 120 mg capsule,extended release 24hr 120 mg PO DAILY Qty: 30 3RF calcium carbonate [Tums Ultra] 400 mg calcium (1,000 mg) Tablet,Chewable 400 mg PO PRN PRN (Reason: Heartburn) Referrals: Cyrus Emmanuel MD [Primary Care Provider, Family Practice]
--- NOTE | 2024-10-24 03:54 | DI.CT.S_ITS ---
PROCEDURE: CT HEAD/BRAIN WO CON INDICATIONS: AMS / unwitnessed fall TECHNIQUE: Noncontrast 4.5 mm thick angled axial sections acquired from the foramen magnum to the vertex, with coronal and sagittal reformats. For radiation dose reduction, the following was used: automated exposure control, adjustment of mA and/or kV according to patient size. COMPARISON: [facility], CT, CT HEAD/BRAIN WO CON, 11/04/2020, 11:03. FINDINGS: Image quality: Diagnostic CSF spaces: There is about 0.8 cm and midline shift toward the right. Slight compression of the left lateral ventricle is noted. Volume: [id number]-[id number] background volume loss Brain: Falx and left tentorial subdural hemorrhage. Left convexity subdural hemorrhage. Thickness portion of the left subdural hemorrhage measures about 1.2 cm. Craniofacial structures: No displaced calvarial fracture identified. Left scalp contusion. IMPRESSION: Subdural hemorrhage along the left convexity, left tentorium, and falx. [id number] mass effect with midline shift toward the right and mild left ventricular compression. No significant changes from the preliminary report. Dictated by: Mario Méndez M.D. on 10/24/2024 at 7:53 Approved by: Mario Méndez M.D. on 10/24/2024 at 7:56
--- NOTE | 2024-10-24 03:54 | DI.CT.S_ITS ---
PROCEDURE: CT CERVICAL SPINE WO CON INDICATIONS: fall, unwitnessed, AMS TECHNIQUE: Noncontrast 3 mm thick sections acquired from the skull base to the T4 level. Sagittal and coronal reformats were then constructed. For radiation dose reduction, the following was used: automated exposure control, adjustment of mA and/or kV according to patient size. COMPARISON: None. FINDINGS: Image quality: Moderate motion artifact Bones: Moderate to severe multilevel cervical spondylosis with disc space height loss, osteophytes, and arthropathy at multiple levels resulting in neural foraminal and thecal sac narrowing. No acute displaced fracture or traumatic subluxation identified. Soft tissues: No apical pneumothorax. There are vascular calcifications. No pathologic prevertebral soft tissue swelling. IMPRESSION: Limited CT due to motion artifact and advanced degenerative changes. No acute displaced fracture or traumatic subluxation is seen. If there is high concern for further derangement, consider MRI evaluation. No significant changes from the preliminary report. Dictated by: Mario Méndez M.D. on 10/24/2024 at 7:57 Approved by: Mario Méndez M.D. on 10/24/2024 at 7:58
[2024-10-24 04:12] LABS: INR 1.1 (0.9-1.3); Prothrombin Time 12.6 SECONDS (9.4-12.5)
[2024-10-24 04:15] LABS: PTT Partial Thromboplastin Tim 26 SECONDS (25.1-36.5)
[2024-10-24 04:17] LABS: Lactate (Lactic Acid) 1.7 mmol/L (0.7-2.1)
[2024-10-24 04:18] LABS: Alanine Aminotransferase 28 IU/L (<35); Albumin 4.2 g/dL (3.5-5.0); Albumin Globulin Ratio 2.1 (1.0-2.8); Alkaline Phosphatase 57 U/L (38-126); Aspartate Aminotransferase 48 IU/L (14-36); BUN Creatinine Ratio 24.4 (6-22); Bilirubin Total 1.3 mg/dL (0.2-1.3); Blood Urea Nitrogen 21 mg/dL (7-17); Calcium 9.2 mg/dL (8.4-10.2); Carbon Dioxide 27 mmol/L (22-32); Chloride 79 mmol/L (98-107); Creatine Kinase 313 U/L (30-135); Estimated Glomerular Filt Rate > 60 mL/min (>60); Ethanol (ETOH) < 10 mg/dL (<10); Glucose 164 mg/dL (70-99); HEMOLYSIS 28 (0-50); Lipase 90 U/L (23-300); Magnesium 1.8 mg/dL (1.6-2.3); Total Protein 6.2 g/dL (6.3-8.2)
[2024-10-24 04:20] LABS: Sodium 115 mmol/L (137-145)
[2024-10-24 04:21] LABS: Potassium 2.7 mmol/L (3.4-5.1)
[2024-10-24 04:27] LABS: NT-proBNP (BNP-Adult 18+) 352 pg/mL (<450)
[2024-10-24 04:29] LABS: Troponin I < 0.012 ng/mL (0.01-0.034)
[2024-10-24] MEDS: levETIRAcetam 1,000 MG in SODIUM CHLORIDE 0.9% 100 ML 440 MG IV (04:41)
[2024-10-24] MEDS: DEXAMETHASONE 10 MG/ML VIAL IV (04:46)
[2024-10-24 04:53] LABS: Add Manual Diff / Slide Review NO; Basophils Absolute Auto 0 /uL (0-100); Basophils Percent Auto 0.1 % (0-2); Eosinophils Absolute Auto 0 /uL (0-450); Eosinophils Percent Auto 0.1 % (2-4); Hematocrit 29.4 % (36-46); Hemoglobin 10.9 g/dL (12.0-16.0); Lymphocytes Absolute Auto 500 /uL (1100-4500); Lymphocytes Percent Auto 5.3 % (25-40); Mean Corpuscular HGB Conc 37.3 % (30-36); Mean Corpuscular Hemoglobin 32.1 PG (26-34); Mean Corpuscular Volume 86.2 fL (80-100); Monocytes Absolute Auto 600 /uL (0-900); Monocytes Percent Auto 6.7 % (3-14); Neutrophils Absolute Auto 8500 /uL (1500-7000); Neutrophils Percent Auto 87.8 % (50-75); Platelet Count 236 X10^3/uL (150-400); Red Blood Cell Count 3.41 X10^6/uL (4.0-5.2); Red Cell Distribution Width 13.6 % (11.6-14.8); White Blood Cell Count 9.7 X10^3/uL (4.5-11.0)
[2024-10-24 05:49] LABS: Appearance Urine UA CLOUDY; Bilirubin Urine UA NEGATIVE (NEGATIVE); Color Urine UA YELLOW; Glucose Urine UA TRACE g/dL (Negative); Ketones Urine UA TRACE (NEGATIVE); Leukocyte Esterase Urine UA 2+ (NEGATIVE); Nitrite Urine UA NEGATIVE (Negative); Occult Blood Urine UA TRACE-INTACT (Negative); Protein Urine UA NEGATIVE (Negative); Specific Gravity Urine UA <=1.005 (1.000-1.035); Urobilinogen Urine UA 0.2 E.U./dL (0.2)
[2024-10-24 05:56] LABS: Bacteria Urine Many (>30); Culture Indicated Urine Specimen Cultured; RBC Urine 0-1/HPF (0-5/HPF); Squamous Epithelial Cell Urine 0-1 /HPF (0-5/HPF); Urine Volume 10mL (spun); WBC Urine 5-10/HPF (0-5/HPF)
[2024-10-24 05:57] LABS: Urine Amphetamines Negative (Negative); Urine Barbiturates Negative (Negative); Urine Benzodiazepines Negative (Negative); Urine Cocaine Negative (Negative); Urine MDMA Negative (Negative); Urine Methadone Negative (Negative); Urine Opiates Negative (Negative); Urine Oxycodone Negative (Negative); Urine Phencyclidine Negative (Negative); Urine THC Negative (Negative); Urine Tricyclic Antidepressant Negative (Negative)
--- NOTE | 2024-10-27 13:27 | CM.SWNOTE ---
Call from pt's Dtr stating pt was in the ED transferred to hospital in [place] and likely pt will need SNF at d/c. Provided the list of [facility] SNFs and encouarged her to discuss with the hospital SW/community development planner at the hospital patient is admitted at to see what pt's needs are at d/c and request SNF in [facility]. BAO Kowalski
== END 2024-10-24 06:09 | disposition short-term general hospital (02) ==
PROVIDERS: Emergency Provider Student in an Organized Health Care Education/Training Program; PCP Family Medicine
DX: S06.5X0A Traumatic subdural hemorrhage without loss of consciousness, initial encounter (principal); E87.1 Hypo-osmolality and hyponatremia; E87.6 Hypokalemia; W19.XXXA Unspecified fall, initial encounter
CPT/HCPCS: 36415; 70450; 71260; 72125; 74177; 80053; 80305; 80320; 81001; 82550; 83605; 83690; 83735; 83880; 84484; 85025; 85610; 85730; 87077; 87086; 87186; 96365; 96375; 99284; 99291; J1100; J1953; Q9967